=== PATIENT | female | born 2005 | race Hispanic/Latino ===

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

== ENCOUNTER 2024-06-27 16:26 | Inpatient (IN) | payer SELFPAY ==
[~2024-06-27] VITALS: Ht 157.5 cm; Wt 70.9 kg
[~2024-06-27 16:26] MED LIST: ONDA-243 PO; amoxicillin PO
--- NOTE | 2024-06-27 16:43 | NUR ---
SEPSIS ALERT AT THIS TIME. JUST PLACED IN HALLWAY A1
[2024-06-27 17:50] LABS: BASOPHILS # (AUTO) 0.03 K/uL (0.00-0.20); BASOPHILS % (AUTO) 0.2 % (0.0-5.0); HEMATOCRIT 35.6 % (36-48); IMMATURE GRANULOCYTE ABSOLUTE 0.06 K/uL (0-1); LYMPHOCYTES # (AUTO) 1.2 K/uL (1.0-4.8); MEAN CORPUSCULAR HEMOGLOBIN 29.5 pg (27.0-33.0); MEAN CORPUSCULAR HGB CONC 33.7 g/dL (32.0-36.0); MEAN CORPUSCULAR VOLUME 87.5 fL (80-100); MONOCYTES # (AUTO) 2.8 K/uL (0.1-1.0); MONOCYTES % (AUTO) 16.9 % (3.0-13.0); NEUTROPHILS # (AUTO) 12.7 K/uL (1.8-7.7); NEUTROPHILS % (AUTO) 75.5 % (40.0-77.0); PLATELET COUNT (AUTO) 186 K/uL (130-400); RED BLOOD CELL COUNT(AUTO) 4.07 MIL/uL (4.00-5.50); RED CELL DISTRIBUTION WIDTH 12.1 % (11.0-15.5); WHITE BLOOD COUNT (AUTO) 16.8 K/uL (4.8-10.8)
[2024-06-27 18:00] LABS: CREATININE 0.6 mg/dL (0.5-1.0)
--- NOTE | 2024-06-27 18:23 | HMCIMG ---
CT HEAD WITHOUT CONTRAST INDICATION: Headache TECHNIQUE: Noncontrast axial helical CT images from the vertex through the skull base using 5 mm slice thickness without contrast material. CT was performed with one or more of the following dose reduction techniques: Automated exposure control, adjustment of the mA and/or kV according to patient size, or use of iterative reconstruction technique. COMPARISON: None FINDINGS: The cerebral and cerebellar hemispheres are age-appropriate in appearance. No evidence for abnormal extra-axial fluid collections or masses. The ventricles and sulci are normal in size and configuration. No evidence for intracranial parenchymal, epidural, or subdural hemorrhage, mass effect or midline shift. The chase-white matter differentiation is well preserved. No secondary evidence to suggest acute ischemia. The brainstem and cerebellum appear normal. The visualized orbits appear unremarkable. The visible paranasal sinuses and mastoid air cells are clear. The calvarium appears normal. IMPRESSION: No acute intracranial process identified.
--- NOTE | 2024-06-27 18:24 | NUR ---
PT LEFT AND RETURNED FROM RADIOLOGY AND IS BEING SET UP FOR AN LP IN ED BED 6. PT ASSIGNED TO HALLWAY A1
[2024-06-27 18:33] LABS: RAPID GROUP A STREP negative (NEGATIVE)
[2024-06-27 18:47] LABS: COVID19 (SARS ANTIGEN RAPID) PRESUMPTIVE NEGATIVE (NEGATIVE)
[2024-06-27 18:48] LABS: INFLUENZA TYPE A Negative For Type A (NEGATIVE); INFLUENZA TYPE B Negative For Type B (NEGATIVE)
--- NOTE | 2024-06-27 19:11 | HMCIMG ---
PORTABLE CHEST RADIOGRAPH INDICATION: fever COMPARISON: None FINDINGS: Heart size is normal. The pulmonary vascularity and connor appear normal. No abnormal pulmonary parenchymal opacity or consolidation identified. No significant pleural effusion noted. No pneumothorax detected. IMPRESSION: No radiographic evidence for any acute cardiopulmonary process.
[2024-06-27] MEDS: 0.9%NACL 1000ML 1,000 ML IV ONE (19:12)
[2024-06-27] MEDS: morPHINE 2 MG SYG IVP ONE ×2 (19:13→22:44)
[2024-06-27] MEDS: PoTASSium BIcarbonate/CIT AC 25 MEQ TABLET.EFF PO ONE (19:51)
[2024-06-27 20:02] LABS: RED BLOOD CELL1,CSF 1499 CMM (0-0); WHITE BLOOD CELL1,CSF 0 CMM (0-5)
[2024-06-27 20:03] LABS: APPEARANCE,CSF HAZY (CLEAR); COLOR,CSF PINK (COLORLESS); CSF TUBE NUMBER 1
[2024-06-27 20:12] LABS: GLUCOSE, CSF 67 mg/dL (40-70); TOTAL PROTEIN, CSF 27 mg/dL (15-45)
[2024-06-27 20:23] LABS: APPEARANCE2,CSF CLEAR (CLEAR); CSF 2ND TUBE NUMBER 3
[2024-06-27 20:24] LABS: COLOR2,CSF COLORLESS (COLORLESS)
[2024-06-27 21:07] LABS: APPEARANCE,URINE CLOUDY (CLEAR); BILIRUBIN,URINE NEGATIVE (NEGATIVE); COLOR,URINE YELLOW (YELLOW); GLUCOSE, URINE (UA) NEGATIVE (NEGATIVE); KETONES,URINE 150 mg/dL (NEGATIVE); LEUKOCYTE ESTERASE ,URINE 500 Leu/uL (NEGATIVE); NITRATE,URINE NEGATIVE (NEGATIVE); OCCULT BLOOD,URINE LARGE (NEGATIVE); PROTEIN,URINE 70 mg/dL (NEGATIVE); UROBILINOGEN,URINE 0.2 mg/dL (0.2-1.0)
[2024-06-27 21:15] LABS: HCG,QUALITATIVE URINE NEGATIVE (NEGATIVE)
[2024-06-27 21:17] LABS: MUCUS,URINE RARE LPF (None Seen); RBC,URINE TNTC /HPF (0-1); SQUAMOUS EPITHELIAL CELL,UR RARE /HPF (0-2); WBC,URINE TNTC /HPF (0-1)
--- NOTE | 2024-06-27 22:01 | HMCIMG ---
ULTRASOUND OF THE PELVIS ULTRASOUND ABD VASCULAR LIMITED INDICATION: Pelvic pain COMPARISONS: None TECHNIQUE: Transabdominal real-time sonographic images were acquired earlier, and subsequently made available for review. FINDINGS: The uterus measures 9.3 x 3.2 x 4.8 cm. The uterus is normal in echotexture and contour. The endometrial thickness measures 5.0 mm. The right ovary measures 4.0 x 1.4 x 2.4 cm. The right ovary is normal in size, shape and echogenicity. No right adnexal masses demonstrated. Color Doppler flow is normal throughout the right ovary. Spectral Doppler analysis demonstrates a normal waveform pattern. The left ovary is obscured by overlying bowel gas. No free pelvic fluid demonstrated. IMPRESSION: No acute pelvic abnormality noted.
[2024-06-27] MEDS: ondanSETRON 4MG INJ IVP ONE (22:10)
--- NOTE | 2024-06-27 22:25 | ERN ---
General Chief Complaint: Fever Stated Complaint: FEVER AND NECK PAIN Time Seen by MD: 16:33 Time Seen by Midlevel: 16:33 Source: patient History of Present Illness Initial Comments 18-year-old female who presents to the emergency department by EMS due to fever. Patient reports she has a severe neck pain, stiffness, headache, nausea. Denies any abdominal pain, cough, congestion or further associated symptoms. Patient reports she was seen at [facility] approximately 10 days ago and told she was having a miscarriage. Denies significant past medical history. Allergies: Coded Allergies: No Known Allergies (Unverified Allergy, Unknown, 11/18/22) Home Meds Active Scripts Ondansetron (Ondansetron Odt) 4 Mg Tab.rapdis, 4 MG PO Q6HPRN PRN for nausea, #16 TAB 0 Refills Prov:ROSANNE FREEDMAN 11/19/22 [amoxicillin ] No Conflict Check, 500 MG PO BID for 10 Days, #20 0 Refills Prov:ROSANNE FREEDMAN 11/19/22 Past Medical History Past Medical History: No Pertinent History Medical History Other: MISCARRAIGE X 2 WKS AGO Past Surgical History: None Female( History) : 1 Aborts: 1 ROS Dictation Constitutional: Positive for fever Negative for chills, and weight loss Eyes: Negative for injury, pain,redness, and discharge ENT: Negative for injury,pain or swelling Cardiovascular: Negative for chest pain, palpitations, and edema Respiratory: Negative for shortness of breath, cough, and wheezing, Abdomen/GI: Positive for nausea Negative for abdominal pain, nausea, vomiting, diarrhea, and constipation Back: Negative for injury and pain : Negative for painful urination, bleeding or discharge MS/Extremity: Positive for neck stiffness/pain Negative for injury and deformity Skin: Negative for rash, and discoloration Neuro: Positive for headache Negative for weakness, numbness, tingling, and seizure Psych: Negative for suicide ideation, homicidal ideation, and hallucinations Physical Exam Physical Exam Dictation General: awake, alert, no acute distress Head/Face: Normocephalic, atraumatic Eyes: PERRL, EOMI, normal conjunctiva ENT: oral cavity clear, TMs clear, oral mucosa moist Neck: Range of motion restricted by pain, tenderness Cardiovascular: RRR, normal S1/S2 Respiratory: CTAB, no respiratory distress, no rales or wheezes Abdomen: Soft, non-tender, non-distended, normal bowel sounds, no guarding or rebound. Skin: Warm, dry, normal turgor, no rash MS/Extremity: Pulses equal, no cyanosis, neurovascular intact, FROM Neuro: COAx4, GCS 15, strength 5/5, CN 2-12 intact, normal cerebellar exam, normal gait Psych: Normal behavior, mood, and affect normal Results Laboratory and Microbiology Lab and Micro Result Labs Reviewed?: Yes EKG/XRAY/US/CT/MRI X-RAY Comment REASON: fever ORDERING PHYSICIAN: TENISHA VELOZ DO PROCEDURE: CXR1VW - CHEST 1VW PORTABLE CHEST RADIOGRAPH INDICATION: fever COMPARISON: None FINDINGS: Heart size is normal. The pulmonary vascularity and connor appear normal. No abnormal pulmonary parenchymal opacity or consolidation identified. No significant pleural effusion noted. No pneumothorax detected. IMPRESSION: No radiographic evidence for any acute cardiopulmonary process. DICTATED BY: Danny MARVIN Comment REASON: R/O retained conception products ORDERING PHYSICIAN: FLORINA BERNAL PROCEDURE: PELVCOMP - US PELVIC NON-OB COMP ULTRASOUND OF THE PELVIS ULTRASOUND ABD VASCULAR LIMITED INDICATION: Pelvic pain COMPARISONS: None TECHNIQUE: Transabdominal real-time sonographic images were acquired earlier, and subsequently made available for review. FINDINGS: The uterus measures 9.3 x 3.2 x 4.8 cm. The uterus is normal in echotexture and contour. The endometrial thickness measures 5.0 mm. The right ovary measures 4.0 x 1.4 x 2.4 cm. The right ovary is normal in size, shape and echogenicity. No right adnexal masses demonstrated. Color Doppler flow is normal throughout the right ovary. Spectral Doppler analysis demonstrates a normal waveform pattern. The left ovary is obscured by overlying bowel gas. No free pelvic fluid demonstrated. IMPRESSION: No acute pelvic abnormality noted. DICTATED BY: JOS MARVIN MD DATE: 06/27/242157 CT Scan Comment REASON: headache ORDERING PHYSICIAN: TENISHA VELOZ DO PROCEDURE: HEAD WO - CT HEAD/BRAIN W/O CONTRAST CT HEAD WITHOUT CONTRAST INDICATION: Headache TECHNIQUE: Noncontrast axial helical CT images from the vertex through the skull base using 5 mm slice thickness without contrast material. CT was performed with one or more of the following dose reduction techniques: Automated exposure control, adjustment of the mA and/or kV according to patient size, or use of iterative reconstruction technique. COMPARISON: None FINDINGS: The cerebral and cerebellar hemispheres are age-appropriate in appearance. No evidence for abnormal extra-axial fluid collections or masses. The ventricles and sulci are normal in size and configuration. No evidence for intracranial parenchymal, epidural, or subdural hemorrhage, mass effect or midline shift. The chase-white matter differentiation is well preserved. No secondary evidence to suggest acute ischemia. The brainstem and cerebellum appear normal. The visualized orbits appear unremarkable. The visible paranasal sinuses and mastoid air cells are clear. The calvarium appears normal. IMPRESSION: No acute intracranial process identified. DICTATED BY: JOS MARVIN MD DATE: 06/27/241820 MDM MDM: Differential diagnosis: Meningitis, viral illness, retained products of conception Rationale: 18-year-old female who presents to the emergency department by EMS due to fever. Patient reports she has a severe neck pain, stiffness, headache, nausea. Denies any abdominal pain, cough, congestion or further associated symptoms. Patient reports she was seen at [facility] approximately 10 days ago and told she was having a miscarriage. Denies significant past medical history. Per physical examination patient is in no acute distress, nonlabored breathing, limited range of motion of the neck with mild tenderness, neurologically intact. Labs obtained indicated leukocytosis with WBCs of 16.8, dehydration with a low- sodium and chloride, hypokalemia potassium of 3.0. UA indicates urinary tract infection, urine drug screen positive for opiates and marijuana. Serology influenza, SARs, strep negative. Lumbar puncture performed RBCs 1499, pink color, and haziness appearance, negative for WBCs, bacteria. Head CT negative for acute abnormalities. Chest x-ray no acute abnormalities noted. Pelvic ul trasound shows no retained products of conception. Upon discussing findings and diagnosis with patient she verbalized the pain and neck pain have been worsening. Patient was administered IV fluids, morphine, K-Lyte, Zofran, Rocephin in the ED. case was discussed with hospitalist who accepted admission. Previous outside records reviewed: Old ER visits. Risk of complication and/or morbidity or mortality of patient management: None Medications-Per medication reconciliation Need for hospitalization: Patient does meet criteria for hospitalization. Need for emergency major/minor surgery: No There are no social concerns with this patient. Prescription drug management Prescriptions will include symptomatic care Patient's prior external medical records from other ER visits were reviewed by me as indicated. Prior testing and results from previous visits were reviewed. Prior tests were taken into account with medical decision making and resource utilization, independent historian/historians were used to obtain complete medical history. I independently interpreted the test that were performed, results were reviewed by me and considered findings on radiology if ordered. Medical management and examination interpretation discussions were had by me with other qualified healthcare professionals as indicated for the patient's care. ED Course Critical Care Note Critical Time: 30 minutes Comments Critical Care Procedure Note Authorized and Performed by: me Total critical care time: Approximately 36 minutes Due to a high probability of clinically significant, life threatening deterioration, the patient required my highest level of preparedness to intervene emergently and I personally spent this critical care time directly and personally managing the patient. This critical care time included obtaining a history; examining the patient; pulse oximetry; ordering and review of studies; arranging urgent treatment with development of a management plan; evaluation of patient's response to treatment; frequent reassessment; and, discussions with other providers. This critical care time was performed to assess and manage the high probability of imminent, life-threatening deterioration that could result in multi-organ failure. It was exclusive of separately billable procedures and treating other patients and teaching time. Please see MDM section and the rest of the note for further information on patient assessment and treatment. DX & DISP Disposition: Inpatient Decision to Admit Date: Jun 27, 2024 Departure Impression: Primary Impression: Urinary tract infection Additional Impressions: Headache, Neck stiffness, Leukocytosis Condition: Stable Referrals: SELF,REFERRAL (PCP) I performed the substantive portion of the visit. I have reviewed and personally made and approve the management plan that is documented in the notes by myself or the PIEDAD. I acknowledge full responsibility for the patient's management plan. FLORINA BERNAL Jun 27, 2024 22:25
[2024-06-27] MEDS: cefTRIAXone 1G VIAL IVPB ONE (22:36)
--- NOTE | 2024-06-27 23:02 | HP ---
[facility] HISTORY AND PHYSICAL Date of Service: Jun 27, 2024 Time of Service: 23:01 PCP: Self Referral HISTORY OF PRESENT ILLNESS: This is a 18-year-old female with significant medical history of asthma who was brought by EMS to the ED for complaints of fever ( T101 at home ) and neck pain which started yesterday associated with nausea and multi episodes of vomiting. Patient states she developed eyelid pain because of pressure when she was vomiting.Patient also reports having generalized body weakness and unsteady gait today. Patient also reports she had miscarriage 1.5 weeks ago and she went to [facility]As per ER midlevel's report a lumbar puncture procedure was done in the ER. Patient denies recent travel outside the country, patient denies sick contact. Patient has two cats and one dog which are indoor. Seen and examined patient in the ER awake,alert and coherent,appears comfortable.Patient denies headache,visual disturbance ,chest pain,palpitation ,cough and shortness of breath. Vital signs temperature 98.8, heart rate 92, blood pressure 122/78 saturation 98% on room air. Labs: WBC 16, hemoglobin 12, hematocrit 35, platelet count 186. Sodium 130, potassium 3.0 chloride 95. Urinalysis consistent with urinary tract infection. Influenza type a and B negative SARs COVID negative group a strep negative. CSF appearance hazy, color pink WBC 0 RBC 1499 the rest of the result are normal. Chest x-ray is normal. CT head without contrast result is unremarkable. Pelvic ultrasound result revealed no acute pelvic abnormality noted. While in the ER patient received 1 L NS bolus, morphine 2 mg IV, potassium replacement 50 mEq p.o., Zofran 4 mg IV we will admit patient for further medical management. REVIEW OF SYSTEMS CONSTITUTIONAL: Complained of fever Denies chills, or night sweats. No unintentional weight loss reported. NEUROLOGICAL: Complain of generalized body weakness and neck pain Denies headache, amaurosis fugax,sensory deficit, vertigo/spinning sensation, gait abnormalities, or tremors. ENT: No hearing loss, otalgia, otorrhea, rhinitis, rhinorrhea, hoarseness, or sore throat. CARDIOVASCULAR: Denies any exertional angina, dyspnea on exertion, orthopnea, paroxysmal nocturnal dyspnea, palpitations, life-threatening arrhythmias, claudication. PULMONARY: Denies any shortness of breath, cough, phlegm/sputum, hemoptysis, pleuritic chest pain. SLEEP: Denies morning headaches, daytime somnolence or napping. Denies difficulty falling asleep, staying asleep, waking from sleep. Denies knowledge of snoring. GASTROINTESTINAL: Complain of nausea and vomiting multiple times Denies any type of dysphagia to either liquids or solids. Denies pyrosis, early satiety, abdominal pain, diarrhea, constipation, or changes in stool consistency or caliber. Denies coffee-ground emesis, hematemesis, hematochezia, or melanotic stools. GENITOURINARY: Denies frequency, urgency, nocturia, hematuria or incontinence (Storage/Irritative symptoms.) Low urinary stream, straining to void, urinary intermittency or hesitancy, splitting of the voiding stream, terminal dribbling. ENDOCRINOLOGIC: Denies polyuria, polydipsia, polyphagia or heat/cold intolerances. HEMATOLOGIC: Denies thrombophilia/previous clots, or coagulopathy/bleeding disorders. ONCOLOGIC: Denies personal history of malignancy. DERMATOLOGIC: Denies rashes or pruritus. PSYCHIATRIC: Denies any suicidal or homicidal ideation. Denies hallucinations. PAST MEDICAL HISTORY: [ Asthma] PAST SURGICAL HISTORY: [Patient denies ] PAST SOCIAL HISTORY: [ Patient lives with boyfriend. Patient admits to smoking marijuana. Patient denies cigarette, cocaine and alcohol use ] FAMILY HISTORY: [ Noncontributory ] Coded Allergies: No Known Allergies (Unverified Allergy, Unknown, 11/18/22) PHYSICAL EXAM GENERAL APPEARANCE: The patient is awake, alert, and oriented, in no acute cardiopulmonary distress. NEUROLOGICAL: Cranial nerves II-XII grossly intact. Motor is 5/5 in bilateral upper and lower extremities proximal to distal. No sensory deficits. HEENT: Face is symmetric. Pupils are equal and reactive. Extraocular movements are intact. NECK: Supple. No JVD. No thyromegaly. No submental, submandibular, pre- /postauricular, occipital or supraclavicular lymphadenopathy. CHEST: Normal chest expansion. No Telemetry. LUNGS: Absence of any rales, rhonchi or any wheezing. CARDIOVASCULAR: Regular. S1 and S2 normal. No appreciable rubs, murmurs or gallops. ABDOMEN: Soft, nontender, and nondistended. There is no rebound, voluntary guarding, or rigidity. : Deferred. No Jones. EXTREMITIES: Non-edematous and not cyanotic. No clubbing. Good capillary refill. SKIN: No skin breakdown. Vital Sign (Last 24 Hours) 06/27/24 20:12 Temp 98.8 Pulse 92 Resp 22 B/P (MAP) 122/78 Pulse Ox 98 O2 Delivery Room Air* O2 Flow Rate 0 FiO2 21 LABS: Laboratory: Test 06/27/24 20:55 06/27/24 18:35 06/27/24 17:55 06/27/24 17:43 Range/Units Urine Color YELLOW YELLOW Urine Appearance CLOUDY H CLEAR Urine pH 6.0 5.0-8.0 Urine Specific [place] 1.019 1.001-1.031 Urine Protein 70 H NEGATIVE mg/dL Urine Glucose (UA) NEGATIVE NEGATIVE mg/dL Urine Ketones 150 H NEGATIVE mg/dL Urine Occult Blood LARGE H NEGATIVE Urine Nitrate NEGATIVE NEGATIVE Urine Bilirubin NEGATIVE NEGATIVE mg/dL Urine Urobilinogen 0.2 0.2-1.0 mg/dL Urine Leukocyte Esterase 500 H NEGATIVE Jami/uL Urine RBC TNTC H 0-1 /HPF Urine WBC TNTC H 0-1 /HPF Urine Squamous Epithelial Cells RARE 0-2 /HPF Urine Bacteria None None Seen /HPF Urine HCG, Qualitative NEGATIVE NEGATIVE CSF Tube Number 1 CSF Volume 5.0 mL CSF Appearance HAZY CLEAR CSF Color PINK H COLORLESS CSF WBC 0 0-5 CMM CSF RBC 1499 H 0-0 CMM CSF Tube Number (Tube b) 3 CSF Appearance (Tube b) CLEAR CLEAR CSF Color (Tube b) COLORLESS COLORLESS CSF WBC (Tube b) 0.0 0-5 CMM CSF RBC (Tube b) 0.0 0-0 CMM CSF Neutrophils % (tube B) % CSF Lymphocytes % (tube b) % CSF Other Cells % (Tube b) CSF Glucose 67 40-70 mg/dL CSF Total Protein 27 15-45 mg/dL Influenza Type A Antigen Negative For Type A NEGATIVE Influenza Type B Antigen Negative For Type B NEGATIVE SARS-CoV-2 Antigen (Rapid) PRESUMPTIVE NEGATIVE NEGATIVE Group A Streptococcus Rapid negative NEGATIVE White Blood Count 16.8 H 4.8-10.8 K/uL Red Blood Count 4.07 4.00-5.50 MIL/uL Hemoglobin 12.0 12.0-16.0 g/dL Hematocrit 35.6 L 36-48 % Mean Corpuscular Volume 87.5 80-100 fL Mean Corpuscular Hemoglobin 29.5 27.0-33.0 pg Mean Corpuscular Hemoglobin Concent 33.7 32.0-36.0 g/dL Red Cell Distribution Width 12.1 11.0-15.5 % Platelet Count 186 130-400 K/uL Mean Platelet Volume 12.1 H 7.5-10.5 fL Immature Granulocyte % (Auto) 0.4 0-1 % Neutrophils (%) (Auto) 75.5 40.0-77.0 % Lymphocytes (%) (Auto) 7.0 L 21.0-51.0 % Monocytes (%) (Auto) 16.9 H 3.0-13.0 % Eosinophils (%) (Auto) 0.0 0.0-8.0 % Basophils (%) (Auto) 0.2 0.0-5.0 % Neutrophils # (Auto) 12.7 H 1.8-7.7 K/uL Lymphocytes # (Auto) 1.2 1.0-4.8 K/uL Monocytes # (Auto) 2.8 H 0.1-1.0 K/uL Eosinophils # (Auto) 0.00 0.00-0.70 K/uL Basophils # (Auto) 0.03 0.00-0.20 K/uL Absolute Immature Granulocyte (auto 0.06 0-1 K/uL Nucleated Red Blood Cells 0.0 0.0-0.19 % White Cell Morphology Comment See comments Sodium Level 130 L 136-145 mmol/L Potassium Level 3.0 *L 3.5-5.1 mmol/L Chloride Level 95 L 101-111 mmol/L Carbon Dioxide Level 23 21-32 mmol/L Blood Urea Nitrogen 9 7-18 mg/dL Creatinine 0.6 0.5-1.0 mg/dL Glomerular Filtration Rate Calc 133 >90 mL/min Random Glucose 97 70-105 mg/dL Lactic Acid Level 0.9 0.8-2.5 mmol/L Total Calcium 8.5 8.5-10.1 mg/dL DIAGNOSTICS / RADIOLOGY: [ ] ASSESSMENT: 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 Hypokalemia POA Dehydration POA Substance abuse POA Urinary tract infection POA PLAN: We will admit patient in medical telemetry We will start on clear liquid advanced as tolerated We will start NS @ 100 ml / hr and re evaluate We will start patient on Rocephin IV bid for empiric coverage We will start on Famotidine 20 mg po bid for GI prophylaxis We will replace electrolytes as needed per protocol We will add prn medication for fever,pain,cough and nausea We will seek Infectious Disease consultation We will request case management service We will request labs in am Counseled on marijuana use cessation Further orders to follow depending on above results Case discussed with attending physician and came up with above treatment and plan of care. ADVANCED CARE PLANNING 1. Which of the following were discussed? Hospice Care - No Therapeutic options - Yes Advance Directives - No Other discussions - 2. Discussed with who? Patient 3. Voluntary nature of this service was explained to the patient? Yes 4. Amount of time spent - ___20____ 5. Reviewed by Physician? (if this service was performed by NPP) Yes Patient seen and examined by me. Agree with note by PVC LOADER SEE ADDITIONAL ORDERS PER CHART DISCUSSED WITH NURSING STAFF YVONNE DONOVAN Jun 27, 2024 23:02
[2024-06-28] MEDS ORDERED: ondanSETRON 4MG INJ IV PRN (01:30)
[2024-06-28] MEDS ORDERED: cefTRIAXone 1G VIAL 1 GM in 0.9%NACL 50ML 50 ML IV SCH (01:30)
[2024-06-28 02:11] LABS: AMPHET/METH SCREEN,URINE NEGATIVE (NEGATIVE); BARBITURATE SCREEN, URINE NEGATIVE (NEGATIVE); BENZODIAZEPINES SCREEN,URINE NEGATIVE (NEGATIVE); CANNABINOID SCREEN,URINE POSITIVE (NEGATIVE); COCAINE SCREEN,URINE NEGATIVE (NEGATIVE); OPIATE SCREEN,URINE POSITIVE (NEGATIVE); PHENCYCLIDINE SCREEN,URINE NEGATIVE (NEGATIVE)
[2024-06-28] MEDS: ketOROlac 15MG/ML VIAL (15MG/ML) IV PRN (03:04)
[2024-06-28] MEDS: 0.9%NACL 1000ML 1,000 ML IV SCH (03:04)
[2024-06-28 04:00] VITALS: BP 119/78; PULSE 107; RESP 19; TEMP 99.8
[2024-06-28 05:06] LABS: BASOPHILS # (AUTO) 0.04 K/uL (0.00-0.20); BASOPHILS % (AUTO) 0.3 % (0.0-5.0); IMMATURE GRANULOCYTE ABSOLUTE 0.07 K/uL (0-1); LYMPHOCYTES # (AUTO) 1.6 K/uL (1.0-4.8); MEAN CORPUSCULAR HEMOGLOBIN 29.5 pg (27.0-33.0); MEAN CORPUSCULAR HGB CONC 33.6 g/dL (32.0-36.0); MEAN CORPUSCULAR VOLUME 87.8 fL (80-100); MONOCYTES # (AUTO) 2.4 K/uL (0.1-1.0); MONOCYTES % (AUTO) 16.7 % (3.0-13.0); NEUTROPHILS # (AUTO) 10.4 K/uL (1.8-7.7); NEUTROPHILS % (AUTO) 71.5 % (40.0-77.0); PLATELET COUNT (AUTO) 191 K/uL (130-400); WHITE BLOOD COUNT (AUTO) 14.5 K/uL (4.8-10.8)
[2024-06-28 05:27] LABS: ALBUMIN 2.8 g/dL (3.5-5.0); BILIRUBIN,TOTAL 0.4 mg/dL (0.2-1.0); CREATININE 0.7 mg/dL (0.5-1.0); POTASSIUM 3.3 mmol/L (3.5-5.1); TOTAL PROTEIN, SERUM 6.7 g/dL (6.0-8.3)
[2024-06-28 06:50] LABS: ERYTHROCYTE SEDIMENTATION RATE 53 MM/HR (0-20)
--- NOTE | 2024-06-28 07:05 | NUR ---
Pt is received with report from the night shift manager nurse. She is resting in bed in no distress. PT has no concerns or complaints. The bed is in a low position with the call clement in reach.
[2024-06-28 08:04] VITALS: BP 127/71; PULSE 118; RESP 20; TEMP 101.4
--- NOTE | 2024-06-28 09:00 | NUR ---
Low potasium level reported Dr. Walton' DEALER DEVELOPMENT MANAGER is at the bedside. Updated on current status and current potassium level.
[2024-06-28] MEDS: FAMOTIDINE 20MG VIAL IV SCH (09:52)
--- NOTE | 2024-06-28 10:21 | PN ---
[facility] PROGRESS NOTE Date of Service: Jun 28, 2024 Time of Service: 10:11 SUBJECTIVE: [ ] This is a 18-year-old female with significant medical history of asthma who was brought by EMS to the ED for complaints of fever ( T101 at home ) and neck pain which started yesterday associated with nausea and multi episodes of vomiting. Patient states she developed eyelid pain because of pressure when she was vomiting.Patient also reports having generalized body weakness and unsteady gait today. Patient also reports she had miscarriage 1.5 weeks ago and she went to [facility] [place].As per ER midlevel's report a lumbar puncture procedure was done in the ER. Patient denies recent travel outside the country, patient denies sick contact. Patient has two cats and one dog which are indoor. on admission: Vital signs temperature 98.8, heart rate 92, blood pressure 122/78 saturation 98% on room air. Labs: WBC 16, hemoglobin 12, hematocrit 35, platelet count 186. Sodium 130, potassium 3.0 chloride 95. Urinalysis consistent with urinary tract infection. Influenza type a and B negative SARs COVID negative group a strep negative. CSF appearance hazy, color pink WBC 0 RBC 1499 the rest of the result are normal. Chest x-ray is normal. CT head without contrast result is unremarkable. Pelvic ultrasound result revealed no acute pelvic abnormality noted. While in the ER patient received 1 L NS bolus, morphine 2 mg IV, potassium replacement 50 mEq p.o., Zofran 4 mg IV we will admit patient for further medical management. 06/28/2024 patient was seen patient appears acutely ill. She is fully awake alert oriented. Denies sensitivity to light. Reports no headache Denied chest pain shortness a breath REVIEW OF SYSTEMS CONSTITUTIONAL: Complained of fever Denies chills, or night sweats. No unintentional weight loss reported. NEUROLOGICAL: Complain of generalized body weakness and neck pain Denies headache, amaurosis fugax,sensory deficit, vertigo/spinning sensation, gait abnormalities, or tremors. ENT: No hearing loss, otalgia, otorrhea, rhinitis, rhinorrhea, hoarseness, or sore throat. CARDIOVASCULAR: Denies any exertional angina, dyspnea on exertion, orthopnea, paroxysmal nocturnal dyspnea, palpitations, life-threatening arrhythmias, claudication. PULMONARY: Denies any shortness of breath, cough, phlegm/sputum, hemoptysis, pleuritic chest pain. SLEEP: Denies morning headaches, daytime somnolence or napping. Denies difficulty falling asleep, staying asleep, waking from sleep. Denies knowledge of snoring. GASTROINTESTINAL: Complain of nausea and vomiting multiple times Denies any type of dysphagia to either liquids or solids. Denies pyrosis, early satiety, abdominal pain, diarrhea, constipation, or changes in stool consistency or caliber. Denies coffee-ground emesis, hematemesis, hematochezia, or melanotic stools. GENITOURINARY: Denies frequency, urgency, nocturia, hematuria or incontinence (Storage/Irritative symptoms.) Low urinary stream, straining to void, urinary intermittency or hesitancy, splitting of the voiding stream, terminal dribbling. ENDOCRINOLOGIC: Denies polyuria, polydipsia, polyphagia or heat/cold intolerances. HEMATOLOGIC: Denies thrombophilia/previous clots, or coagulopathy/bleeding disorders. ONCOLOGIC: Denies personal history of malignancy. DERMATOLOGIC: Denies rashes or pruritus. PSYCHIATRIC: Denies any suicidal or homicidal ideation. Denies hallucinations. PHYSICAL EXAM GENERAL APPEARANCE: The patient is awake, alert, and oriented, in no acute cardiopulmonary distress. NEUROLOGICAL: Cranial nerves II-XII grossly intact. Motor is 5/5 in bilateral upper and lower extremities proximal to distal. No sensory deficits. HEENT: Face is symmetric. Pupils are equal and reactive. Extraocular movements are intact. NECK: Supple. No JVD. No thyromegaly. No submental, submandibular, pre- /postauricular, occipital or supraclavicular lymphadenopathy. CHEST: Normal chest expansion. No Telemetry. LUNGS: Absence of any rales, rhonchi or any wheezing. CARDIOVASCULAR: Regular. S1 and S2 normal. No appreciable rubs, murmurs or gallops. ABDOMEN: Soft, nontender, and nondistended. There is no rebound, voluntary guarding, or rigidity. : Deferred. No Jones. EXTREMITIES: Non-edematous and not cyanotic. No clubbing. Good capillary refill. SKIN: No skin breakdown. Vital Signs (last 8hr) Date Time Temp Pulse Resp B/P (MAP) Pulse Ox O2 Delivery O2 Flow Rate FiO2 06/28/24 08:04 101.5 118 20 127/71 99 Room Air 3/26/25 04:00 99.9 107 19 119/78 99 Room Air 21 LABS: Laboratory: Test 06/28/24 04:54 06/27/24 20:58 06/27/24 20:55 06/27/24 18:35 Range/Units White Blood Count 14.5 H 4.8-10.8 K/uL Red Blood Count 4.10 4.00-5.50 MIL/uL Hemoglobin 12.1 12.0-16.0 g/dL Hematocrit 36.0 36-48 % Mean Corpuscular Volume 87.8 80-100 fL Mean Corpuscular Hemoglobin 29.5 27.0-33.0 pg Mean Corpuscular Hemoglobin Concent 33.6 32.0-36.0 g/dL Red Cell Distribution Width 12.0 11.0-15.5 % Platelet Count 191 130-400 K/uL Mean Platelet Volume 12.0 H 7.5-10.5 fL Immature Granulocyte % (Auto) 0.5 0-1 % Neutrophils (%) (Auto) 71.5 40.0-77.0 % Lymphocytes (%) (Auto) 11.0 L 21.0-51.0 % Monocytes (%) (Auto) 16.7 H 3.0-13.0 % Eosinophils (%) (Auto) 0.0 0.0-8.0 % Basophils (%) (Auto) 0.3 0.0-5.0 % Neutrophils # (Auto) 10.4 H 1.8-7.7 K/uL Lymphocytes # (Auto) 1.6 1.0-4.8 K/uL Monocytes # (Auto) 2.4 H 0.1-1.0 K/uL Eosinophils # (Auto) 0.00 0.00-0.70 K/uL Basophils # (Auto) 0.04 0.00-0.20 K/uL Absolute Immature Granulocyte (auto 0.07 0-1 K/uL Nucleated Red Blood Cells 0.0 0.0-0.19 % Erythrocyte Sedimentation Rate 53 H 0-20 MM/HR Sodium Level 130 L 136-145 mmol/L Potassium Level 3.3 L 3.5-5.1 mmol/L Chloride Level 96 L 101-111 mmol/L Carbon Dioxide Level 22 21-32 mmol/L Blood Urea Nitrogen 8 7-18 mg/dL Creatinine 0.7 0.5-1.0 mg/dL Glomerular Filtration Rate Calc 128 >90 mL/min Random Glucose 91 70-105 mg/dL Lactic Acid Level 1.0 0.8-2.5 mmol/L Total Calcium 8.8 8.5-10.1 mg/dL Total Bilirubin 0.4 0.2-1.0 mg/dL Aspartate Amino Transf (AST/SGOT) 22 10-37 U/L Alanine Aminotransferase (ALT/SGPT) 20 12-78 U/L Alkaline Phosphatase 77 50-136 U/L Total Creatine Kinase 119 21-232 U/L Total Protein 6.7 6.0-8.3 g/dL Albumin 2.8 L 3.5-5.0 g/dL Procalcitonin 0.35 0.05-0.5 ng/mL Urine Opiates Screen POSITIVE H NEGATIVE Urine Barbiturates Screen NEGATIVE NEGATIVE Urine Phencyclidine Screen NEGATIVE NEGATIVE Urine Amphetamines Screen NEGATIVE NEGATIVE Urine Benzodiazepines Screen NEGATIVE NEGATIVE Urine Cocaine Screen NEGATIVE NEGATIVE Urine Marijuana (THC) Screen POSITIVE H NEGATIVE Urine Color YELLOW YELLOW Urine Appearance CLOUDY H CLEAR Urine pH 6.0 5.0-8.0 Urine Specific [place] 1.019 1.001-1.031 Urine Protein 70 H NEGATIVE mg/dL Urine Glucose (UA) NEGATIVE NEGATIVE mg/dL Urine Ketones 150 H NEGATIVE mg/dL Urine Occult Blood LARGE H NEGATIVE Urine Nitrate NEGATIVE NEGATIVE Urine Bilirubin NEGATIVE NEGATIVE mg/dL Urine Urobilinogen 0.2 0.2-1.0 mg/dL Urine Leukocyte Esterase 500 H NEGATIVE Jami/uL Urine RBC TNTC H 0-1 /HPF Urine WBC TNTC H 0-1 /HPF Urine Squamous Epithelial Cells RARE 0-2 /HPF Urine Bacteria None None Seen /HPF Urine HCG, Qualitative NEGATIVE NEGATIVE CSF Tube Number 1 CSF Volume 5.0 mL CSF Appearance HAZY CLEAR CSF Color PINK H COLORLESS CSF WBC 0 0-5 CMM CSF RBC 1499 H 0-0 CMM CSF Tube Number (Tube b) 3 CSF Appearance (Tube b) CLEAR CLEAR CSF Color (Tube b) COLORLESS COLORLESS CSF WBC (Tube b) 0.0 0-5 CMM CSF RBC (Tube b) 0.0 0-0 CMM CSF Neutrophils % (tube B) % CSF Lymphocytes % (tube b) % CSF Other Cells % (Tube b) CSF Glucose 67 40-70 mg/dL CSF Total Protein 27 15-45 mg/dL Test 06/27/24 17:55 06/27/24 17:43 Range/Units Influenza Type A Antigen Negative For Type A NEGATIVE Influenza Type B Antigen Negative For Type B NEGATIVE SARS-CoV-2 Antigen (Rapid) PRESUMPTIVE NEGATIVE NEGATIVE Group A Streptococcus Rapid negative NEGATIVE White Cell Morphology Comment See comments Current Medications Medications (Trade) Dose Ordered Sig/Shelly Route PRN Reason Start Time Stop Time Status Last Admin Dose Admin Ceftriaxone Sodium 1 gm/ Sodium Chloride 50 ml @ 100 mls/hr Q24H IV 06/28/24 01:30 06/28/24 01:47 DC Ceftriaxone Sodium (ROCEphine 1G INJ) 1 gm Q24H IVPB 06/28/24 22:00 07/08/24 21:59 Famotidine (Pepcid 20mg Vial) 20 mg BID IV 06/28/24 09:00 07/28/24 08:59 06/28/24 09:52 20 MG Ketorolac Tromethamine (toRADol) 15 mg Q6H PRN IV MODERATE PAIN (4-6) 06/28/24 03:00 07/03/24 02:59 06/28/24 03:04 15 MG Ondansetron HCl (zoFRAN 4MG INJ) 4 mg Q6H PRN IV NAUSEA/VOMITING 06/28/24 01:30 07/28/24 01:29 Sodium Chloride 1,000 ml @ 100 mls/hr Q10H IV 06/28/24 01:30 07/28/24 01:29 06/28/24 03:04 100 MLS/HR DIAGNOSTICS / RADIOLOGY: [ ] ASSESSMENT: Sepsis temperature 101.5, tachycardia 118, leukocytosis POA 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 Continue Tylenol 650 mg po every 4 hrs for fever Pain management: Toradol IV every 4 hours PRN: MEDICATIONS Tylenol 650 mg po every 4 hrs for fever Supportive measures: DVT ppx, GI ppx all questions answered Supervising MD Dr. Mishra This document was generated in part using voice recognition software, occasional wrong word or sound alike substitutions may have occurred due to the inherent limitations of voice recognition software. Read the chart carefully and recogni ze using context, where the substitutions have occurred. Although every effort was made to edit the content, bulk tank driver and typing errors may occur ATTESTATION BY PHYSICIAN I have seen and examined the patient. I reviewed the documentation, medical decision making, and treatment plan as noted by the mid-level provider above. I agree with the findings and plan of care. HERLINDA MISHRA MD, ELIZABETH NP Jun 28, 2024 10:21
[2024-06-28] MEDS: PoTASSium chloRIDE 20MEQ ER 20 MEQ ERTAB PO PRN (10:23)
[2024-06-28] MEDS ORDERED: MAGNESIUM 2GM PREMIX 50ML 50 ML IV PRN (10:30)
[2024-06-28] MEDS ORDERED: PoTASSium chloRIDE 20MEQ/100ML 100 ML IV PRN (10:30)
[2024-06-28] MEDS ORDERED: PoTASSium chl 10% ELIXIR 20MEQ 20 MEQ/15 ML UDCUP PO PRN (10:30)
[2024-06-28 12:08] VITALS: BP 129/81; PULSE 114; RESP 19; TEMP 100
--- NOTE | 2024-06-28 13:23 | CONS ---
INFECTIOUS DISEASE CONSULTATION NOTE Date of Service: Jun 28, 2024 Reason for Consultation: Possible meningitis/Encephalitis Requesting Physician: Rina Morton. HISTORY OF PRESENT ILLNESS: This is a 18-year-old female patient with past medical history of asthma and a recent miscarriage two weeks ago who presented to the hospital with chief complaint of fever for 4 days and neck pain since Wednesday. Patient also reported she was having nausea and vomiting. On admission patient had a WBC of 16.8 but no fever. Patient denied any recent travel. A lumbar puncture was done in ER and the fluid is negative for WBC. We will follow up on the CSF culture results. A urinalysis was positive and patient was started on ceftriaxone. During examination today patient denied dysuria or frequent urination. The WBC still elevated at 14.5 and patient had a fever of 101.5 this morning. The nausea and vomiting has resolved. No skin rash. Not having sensitivity to light. The preliminary urine culture results is growing Gram-negative rods. We will discontinue ceftriaxone and start patient on Zosyn IV. REVIEW OF SYSTEMS CONSTITUTIONAL: Reported fever. HEAD/FACE: Reported headache. EENT: Denies eye pain, blurred vision, double vision, or light sensitivity. RESPIRATORY: Denies shortness of breath, cough, wheezing. CARDIOVASCULAR: Denies chest pain, palpitation, syncope. GASTROINTESTINAL/ABDOMINAL: Reported nausea and vomiting GENITOURINARY: Denies dysuria or hematuria. MUSCULOSKELETAL: Denies joint pain, tenderness, or trauma. INTEGUMENTARY: Denies rash or itchiness NEUROLOGICAL/PSYCH: Denies anxiety, depression, heat or cold intolerance. PAST MEDICAL HISTORY: Asthma. Miscarriage two weeks ago. PAST SURGICAL HISTORY: Denied any surgical procedures. PAST SOCIAL HISTORY: Admitted to using Using marijuana and alcohol occasionally. Denies the use of any other illicit drug. FAMILY HISTORY: Mother had cervical cancer. Coded Allergies: No Known Allergies (Unverified Allergy, Unknown, 11/18/22) PHYSICAL EXAM EYES: Anicteric. Pupils equal and reactive. HENT: No oral thrush seen, moist Oral mucosa. NECK: Supple, no JVD or thyromegaly. LUNGS: Good air entry. No rales, no rhonchi. CARDIOVASCULAR: S1, S2 regular. No murmur heard. ABDOMEN: Soft, non tender, bowel sounds present, no organomegaly. CENTRAL NERVOUS SYSTEM: Awake, alert, oriented x 3. SKIN: No rashes, no swelling. LYMPHATICS: No peripheral lymphadenopathy MUSCULOSKELETAL: No joint swelling, erythema or tenderness. EXTREMITIES: No cyanosis or clubbing. BACK: No deformity, no pressure ulcer. GENITOURINARY: No dysuria or hematuria. Vital Sign (Last 24 Hours) 06/27/24 06/28/24 06/28/24 20:12 04:00 12:08 Temp 100.0 Pulse 114 Resp 19 B/P (MAP) 129/81 Pulse Ox 97 O2 Delivery Room Air O2 Flow Rate 0 FiO2 21 LABS: Laboratory: Test 06/28/24 04:54 06/27/24 20:58 06/27/24 20:55 06/27/24 18:35 Range/Units White Blood Count 14.5 H 4.8-10.8 K/uL Red Blood Count 4.10 4.00-5.50 MIL/uL Hemoglobin 12.1 12.0-16.0 g/dL Hematocrit 36.0 36-48 % Mean Corpuscular Volume 87.8 80-100 fL Mean Corpuscular Hemoglobin 29.5 27.0-33.0 pg Mean Corpuscular Hemoglobin Concent 33.6 32.0-36.0 g/dL Red Cell Distribution Width 12.0 11.0-15.5 % Platelet Count 191 130-400 K/uL Mean Platelet Volume 12.0 H 7.5-10.5 fL Immature Granulocyte % (Auto) 0.5 0-1 % Neutrophils (%) (Auto) 71.5 40.0-77.0 % Lymphocytes (%) (Auto) 11.0 L 21.0-51.0 % Monocytes (%) (Auto) 16.7 H 3.0-13.0 % Eosinophils (%) (Auto) 0.0 0.0-8.0 % Basophils (%) (Auto) 0.3 0.0-5.0 % Neutrophils # (Auto) 10.4 H 1.8-7.7 K/uL Lymphocytes # (Auto) 1.6 1.0-4.8 K/uL Monocytes # (Auto) 2.4 H 0.1-1.0 K/uL Eosinophils # (Auto) 0.00 0.00-0.70 K/uL Basophils # (Auto) 0.04 0.00-0.20 K/uL Absolute Immature Granulocyte (auto 0.07 0-1 K/uL Nucleated Red Blood Cells 0.0 0.0-0.19 % Erythrocyte Sedimentation Rate 53 H 0-20 MM/HR Sodium Level 130 L 136-145 mmol/L Potassium Level 3.3 L 3.5-5.1 mmol/L Chloride Level 96 L 101-111 mmol/L Carbon Dioxide Level 22 21-32 mmol/L Blood Urea Nitrogen 8 7-18 mg/dL Creatinine 0.7 0.5-1.0 mg/dL Glomerular Filtration Rate Calc 128 >90 mL/min Random Glucose 91 70-105 mg/dL Lactic Acid Level 1.0 0.8-2.5 mmol/L Total Calcium 8.8 8.5-10.1 mg/dL Magnesium Level 2.10 1.80-2.40 mg/dL Total Bilirubin 0.4 0.2-1.0 mg/dL Aspartate Amino Transf (AST/SGOT) 22 10-37 U/L Alanine Aminotransferase (ALT/SGPT) 20 12-78 U/L Alkaline Phosphatase 77 50-136 U/L Total Creatine Kinase 119 21-232 U/L Total Protein 6.7 6.0-8.3 g/dL Albumin 2.8 L 3.5-5.0 g/dL Procalcitonin 0.35 0.05-0.5 ng/mL Urine Opiates Screen POSITIVE H NEGATIVE Urine Barbiturates Screen NEGATIVE NEGATIVE Urine Phencyclidine Screen NEGATIVE NEGATIVE Urine Amphetamines Screen NEGATIVE NEGATIVE Urine Benzodiazepines Screen NEGATIVE NEGATIVE Urine Cocaine Screen NEGATIVE NEGATIVE Urine Marijuana (THC) Screen POSITIVE H NEGATIVE Urine Color YELLOW YELLOW Urine Appearance CLOUDY H CLEAR Urine pH 6.0 5.0-8.0 Urine Specific [place] 1.019 1.001-1.031 Urine Protein 70 H NEGATIVE mg/dL Urine Glucose (UA) NEGATIVE NEGATIVE mg/dL Urine Ketones 150 H NEGATIVE mg/dL Urine Occult Blood LARGE H NEGATIVE Urine Nitrate NEGATIVE NEGATIVE Urine Bilirubin NEGATIVE NEGATIVE mg/dL Urine Urobilinogen 0.2 0.2-1.0 mg/dL Urine Leukocyte Esterase 500 H NEGATIVE Jami/uL Urine RBC TNTC H 0-1 /HPF Urine WBC TNTC H 0-1 /HPF Urine Squamous Epithelial Cells RARE 0-2 /HPF Urine Bacteria None None Seen /HPF Urine HCG, Qualitative NEGATIVE NEGATIVE CSF Tube Number 1 CSF Volume 5.0 mL CSF Appearance HAZY CLEAR CSF Color PINK H COLORLESS CSF WBC 0 0-5 CMM CSF RBC 1499 H 0-0 CMM CSF Tube Number (Tube b) 3 CSF Appearance (Tube b) CLEAR CLEAR CSF Color (Tube b) COLORLESS COLORLESS CSF WBC (Tube b) 0.0 0-5 CMM CSF RBC (Tube b) 0.0 0-0 CMM CSF Neutrophils % (tube B) % CSF Lymphocytes % (tube b) % CSF Other Cells % (Tube b) CSF Glucose 67 40-70 mg/dL CSF Total Protein 27 15-45 mg/dL Test 06/27/24 17:55 06/27/24 17:43 Range/Units Influenza Type A Antigen Negative For Type A NEGATIVE Influenza Type B Antigen Negative For Type B NEGATIVE SARS-CoV-2 Antigen (Rapid) PRESUMPTIVE NEGATIVE NEGATIVE Group A Streptococcus Rapid negative NEGATIVE White Cell Morphology Comment See comments DIAGNOSTICS / RADIOLOGY: PATIENT: EVERARDO MCDANIEL ACCT: [id number] LOC: [facility] U: [id number] AGE/SX: 18/F ROOM: [facility] RE06/27/[address]: HERLINDA MISHRA MD : 2005 BED: 1 DIS: STATUS: ADM IN TLOC: SPEC: [id number] RADHA: 06/27/24 STATUS: RES REQ: [id number] RECD: 06/28/[address]: TENISHA VELOZ DO [place] [facility] [place] VALENTINA REYES: NONE SPDESC: CLEAN CAT SELF,REFERRAL ORDERED: AERO ID & SENS Procedure Result Ricardo Date-Time AEROBIC ID & SENSITIVITIES Preliminary 06/28/24-1121 MRL COLONY DESCRIPTION: DAY 1: COLONY COUNT: >100,000 CFU/ML GRAM NEGATIVE RODS IDENTIFICATION AND SENSITIVITY TO FOLLOW Test(s) performed by: [facility] [address] [place] [address] ASSESSMENT: Urinary tract infection. 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 Leukocytosis. Headache. PLAN: Discontinue ceftriaxone. Start Zosyn 3.375 g IV every 8 hours. We will follow up on the final culture results. Continue GI prophylaxis. Continue pain management. We will monitor electrolytes. Thank you for allowing ID to participate in the care of this patient. This case was reviewed and discussed with my supervising physician and the above assessment and plan was formulated and agreed upon. ATTESTATION BY PHYSICIAN I have seen and examined the patient. I reviewed the documentation, medical decision making, and treatment plan as noted by the mid-level provider above. I agree with the findings and plan of care. PACO AGUILA MD, MIRTA L FNP Jun 28, 2024 13:23
[2024-06-28] MEDS: ZOSYN 3.375GM +NS 50ML IV SCH (14:51)
--- NOTE | 2024-06-28 15:38 | NUR ---
DCP -- Home Patient states lives with Grzegorz Franklin, Spouse [phone] in a house with a ramp entrance and tub. States she works at [employer], remains independent and does not drive. States able to complete ADL's on her own. Denies medical devices. Denies home health services, home care provider or dialysis. PCP - Amita Cassidy - [facility]. Upon discharge, states Jennifer Plascencia, Mother [phone]/Grzegorz Franklin, Spouse [phone] and assist with care, as needed. Referred to Financial Counseling. Provided Community Resource List. Addendum: 06/28/24 at 1545 by ZAHRA CLEANING RN CM Amended: Links added.
[2024-06-28 16:18] VITALS: BP 127/81; PULSE 105; RESP 19; TEMP 98.4
--- NOTE | 2024-06-28 17:41 | NUR ---
New IV Right IV is discontinued. A new 22 g PIV is started on the left forearm.
[2024-06-28 20:00] VITALS: BP 138/76; PULSE 116; RESP 18; TEMP 100.1; O2SAT 99
[2024-06-28] MEDS ORDERED: cefTRIAXone 1G VIAL IVPB SCH (22:00)
[2024-06-29] VITALS (8 sets, daily range): BP systolic 124–154; BP diastolic 64–80; PULSE 67–114; RESP 18–19; TEMP 97.9–100.9; O2SAT 98
[2024-06-29] MEDS: acetaMINOPHEN 325 MG TAB PO PRN (00:58)
[2024-06-29 05:05] LABS: BASOPHILS # (AUTO) 0.04 K/uL (0.00-0.20); BASOPHILS % (AUTO) 0.4 % (0.0-5.0); EOSINOPHILS # (AUTO) 0.01 K/uL (0.00-0.70); EOSINOPHILS % (AUTO) 0.1 % (0.0-8.0); HEMATOCRIT 35.7 % (36-48); IMMATURE GRANULOCYTE ABSOLUTE 0.07 K/uL (0-1); LYMPHOCYTES % (AUTO) 21.8 % (21.0-51.0); MEAN CORPUSCULAR HEMOGLOBIN 28.8 pg (27.0-33.0); MEAN CORPUSCULAR HGB CONC 32.8 g/dL (32.0-36.0); MEAN CORPUSCULAR VOLUME 87.9 fL (80-100); MONOCYTES # (AUTO) 1.8 K/uL (0.1-1.0); MONOCYTES % (AUTO) 19.6 % (3.0-13.0); NEUTROPHILS # (AUTO) 5.1 K/uL (1.8-7.7); NEUTROPHILS % (AUTO) 57.3 % (40.0-77.0); PLATELET COUNT (AUTO) 212 K/uL (130-400); RED BLOOD CELL COUNT(AUTO) 4.06 MIL/uL (4.00-5.50)
[2024-06-29 05:22] LABS: ALBUMIN 2.7 g/dL (3.5-5.0); BILIRUBIN,TOTAL 0.5 mg/dL (0.2-1.0); CREATININE 0.6 mg/dL (0.5-1.0); POTASSIUM 3.6 mmol/L (3.5-5.1); TOTAL PROTEIN, SERUM 6.5 g/dL (6.0-8.3)
[2024-06-29] MEDS: DOXYCYCLINE HYCLATE 100 MG TABLET PO SCH (09:44)
--- NOTE | 2024-06-29 09:45 | PN ---
[facility] PROGRESS NOTE Date of Service: Jun 29, 2024 Time of Service: 09:42 SUBJECTIVE: [ ] This is a 18-year-old female with significant medical history of asthma who was brought by EMS to the ED for complaints of fever ( T101 at home ) and neck pain which started yesterday associated with nausea and multi episodes of vomiting. Patient states she developed eyelid pain because of pressure when she was vomiting.Patient also reports having generalized body weakness and unsteady gait today. Patient also reports she had miscarriage 1.5 weeks ago and she went to [facility] [place]As per ER midlevel's report a lumbar puncture procedure was done in the ER. Patient denies recent travel outside the country, patient denies sick contact. Patient has two cats and one dog which are indoor. on admission: Vital signs temperature 98.8, heart rate 92, blood pressure 122/78 saturation 98% on room air. Labs: WBC 16, hemoglobin 12, hematocrit 35, platelet count 186. Sodium 130, potassium 3.0 chloride 95. Urinalysis consistent with urinary tract infection. Influenza type a and B negative SARs COVID negative group a strep negative. CSF appearance hazy, color pink WBC 0 RBC 1499 the rest of the result are normal. Chest x-ray is normal. CT head without contrast result is unremarkable. Pelvic ultrasound result revealed no acute pelvic abnormality noted. While in the ER patient received 1 L NS bolus, morphine 2 mg IV, potassium replacement 50 mEq p.o., Zofran 4 mg IV we will admit patient for further medical management. 06/28/2024 patient was seen patient appears acutely ill. She is fully awake alert oriented. Denies sensitivity to light. Reports no headache Denied chest pain shortness a breath 06/29/2024 we will continue to follow cultures urine cultures Gram-negative E coli waiting for CSF ruled out meningitis final report being followed by ID. T- max overnight 100.9. The patient is tolerating antibiotics. Reports no diarrhea reports no headaches over24 hours. REVIEW OF SYSTEMS CONSTITUTIONAL: Complained of fever Denies chills, or night sweats. No unintentional weight loss reported. NEUROLOGICAL: Complain of generalized body weakness and neck pain Denies headache, amaurosis fugax,sensory deficit, vertigo/spinning sensation, gait abnormalities, or tremors. ENT: No hearing loss, otalgia, otorrhea, rhinitis, rhinorrhea, hoarseness, or sore throat. CARDIOVASCULAR: Denies any exertional angina, dyspnea on exertion, orthopnea, paroxysmal nocturnal dyspnea, palpitations, life-threatening arrhythmias, claudication. PULMONARY: Denies any shortness of breath, cough, phlegm/sputum, hemoptysis, pleuritic chest pain. SLEEP: Denies morning headaches, daytime somnolence or napping. Denies difficulty falling asleep, staying asleep, waking from sleep. Denies knowledge of snoring. GASTROINTESTINAL: Complain of nausea and vomiting multiple times Denies any type of dysphagia to either liquids or solids. Denies pyrosis, early satiety, abdominal pain, diarrhea, constipation, or changes in stool consistency or caliber. Denies coffee-ground emesis, hematemesis, hematochezia, or melanotic stools. GENITOURINARY: Denies frequency, urgency, nocturia, hematuria or incontinence (Storage/Irritative symptoms.) Low urinary stream, straining to void, urinary intermittency or hesitancy, splitting of the voiding stream, terminal dribbling. ENDOCRINOLOGIC: Denies polyuria, polydipsia, polyphagia or heat/cold intolerances. HEMATOLOGIC: Denies thrombophilia/previous clots, or coagulopathy/bleeding disorders. ONCOLOGIC: Denies personal history of malignancy. DERMATOLOGIC: Denies rashes or pruritus. PSYCHIATRIC: Denies any suicidal or homicidal ideation. Denies hallucinations. PHYSICAL EXAM GENERAL APPEARANCE: The patient is awake, alert, and oriented, in no acute cardiopulmonary distress. NEUROLOGICAL: Cranial nerves II-XII grossly intact. Motor is 5/5 in bilateral upper and lower extremities proximal to distal. No sensory deficits. HEENT: Face is symmetric. Pupils are equal and reactive. Extraocular movements are intact. NECK: Supple. No JVD. No thyromegaly. No submental, submandibular, pre- /postauricular, occipital or supraclavicular lymphadenopathy. CHEST: Normal chest expansion. No Telemetry. LUNGS: Absence of any rales, rhonchi or any wheezing. CARDIOVASCULAR: Regular. S1 and S2 normal. No appreciable rubs, murmurs or gallops. ABDOMEN: Soft, nontender, and nondistended. There is no rebound, voluntary guarding, or rigidity. : Deferred. No Jones. EXTREMITIES: Non-edematous and not cyanotic. No clubbing. Good capillary refill. SKIN: No skin breakdown. Vital Signs (last 8hr) Date Time Temp Pulse Resp B/P (MAP) Pulse Ox O2 Delivery O2 Flow Rate FiO2 06/29/24 08:00 99.0 67 19 127/79 97 Room Air 06/29/24 07:43 98 Room Air* 0 21 06/29/24 04:00 98.4 68 18 124/76 97 Room Air LABS: Laboratory: Test 06/29/24 04:36 06/28/24 04:54 06/27/24 20:58 06/27/24 20:55 Range/Units White Blood Count 9.0 # 4.8-10.8 K/uL Red Blood Count 4.06 4.00-5.50 MIL/uL Hemoglobin 11.7 L 12.0-16.0 g/dL Hematocrit 35.7 L 36-48 % Mean Corpuscular Volume 87.9 80-100 fL Mean Corpuscular Hemoglobin 28.8 27.0-33.0 pg Mean Corpuscular Hemoglobin Concent 32.8 32.0-36.0 g/dL Red Cell Distribution Width 12.0 11.0-15.5 % Platelet Count 212 130-400 K/uL Mean Platelet Volume 12.4 H 7.5-10.5 fL Immature Granulocyte % (Auto) 0.8 0-1 % Neutrophils (%) (Auto) 57.3 40.0-77.0 % Lymphocytes (%) (Auto) 21.8 21.0-51.0 % Monocytes (%) (Auto) 19.6 H 3.0-13.0 % Eosinophils (%) (Auto) 0.1 0.0-8.0 % Basophils (%) (Auto) 0.4 0.0-5.0 % Neutrophils # (Auto) 5.1 1.8-7.7 K/uL Lymphocytes # (Auto) 2.0 1.0-4.8 K/uL Monocytes # (Auto) 1.8 H 0.1-1.0 K/uL Eosinophils # (Auto) 0.01 0.00-0.70 K/uL Basophils # (Auto) 0.04 0.00-0.20 K/uL Absolute Immature Granulocyte (auto 0.07 0-1 K/uL Nucleated Red Blood Cells 0.0 0.0-0.19 % Sodium Level 137 136-145 mmol/L Potassium Level 3.6 3.5-5.1 mmol/L Chloride Level 102 101-111 mmol/L Carbon Dioxide Level 25 21-32 mmol/L Blood Urea Nitrogen 7 7-18 mg/dL Creatinine 0.6 0.5-1.0 mg/dL Glomerular Filtration Rate Calc 133 >90 mL/min Random Glucose 95 70-105 mg/dL Total Calcium 8.6 8.5-10.1 mg/dL Magnesium Level 2.00 1.80-2.40 mg/dL Total Bilirubin 0.5 # 0.2-1.0 mg/dL Aspartate Amino Transf (AST/SGOT) 40 H 10-37 U/L Alanine Aminotransferase (ALT/SGPT) 37 # 12-78 U/L Alkaline Phosphatase 77 50-136 U/L Total Protein 6.5 6.0-8.3 g/dL Albumin 2.7 L 3.5-5.0 g/dL Erythrocyte Sedimentation Rate 53 H 0-20 MM/HR Lactic Acid Level 1.0 0.8-2.5 mmol/L Total Creatine Kinase 119 21-232 U/L Procalcitonin 0.35 0.05-0.5 ng/mL Urine Opiates Screen POSITIVE H NEGATIVE Urine Barbiturates Screen NEGATIVE NEGATIVE Urine Phencyclidine Screen NEGATIVE NEGATIVE Urine Amphetamines Screen NEGATIVE NEGATIVE Urine Benzodiazepines Screen NEGATIVE NEGATIVE Urine Cocaine Screen NEGATIVE NEGATIVE Urine Marijuana (THC) Screen POSITIVE H NEGATIVE Urine Color YELLOW YELLOW Urine Appearance CLOUDY H CLEAR Urine pH 6.0 5.0-8.0 Urine Specific [place] 1.019 1.001-1.031 Urine Protein 70 H NEGATIVE mg/dL Urine Glucose (UA) NEGATIVE NEGATIVE mg/dL Urine Ketones 150 H NEGATIVE mg/dL Urine Occult Blood LARGE H NEGATIVE Urine Nitrate NEGATIVE NEGATIVE Urine Bilirubin NEGATIVE NEGATIVE mg/dL Urine Urobilinogen 0.2 0.2-1.0 mg/dL Urine Leukocyte Esterase 500 H NEGATIVE Jami/uL Urine RBC TNTC H 0-1 /HPF Urine WBC TNTC H 0-1 /HPF Urine Squamous Epithelial Cells RARE 0-2 /HPF Urine Bacteria None None Seen /HPF Urine HCG, Qualitative NEGATIVE NEGATIVE Test 06/27/24 18:35 06/27/24 17:55 06/27/24 17:43 Range/Units CSF Tube Number 1 CSF Volume 5.0 mL CSF Appearance HAZY CLEAR CSF Color PINK H COLORLESS CSF WBC 0 0-5 CMM CSF RBC 1499 H 0-0 CMM CSF Tube Number (Tube b) 3 CSF Appearance (Tube b) CLEAR CLEAR CSF Color (Tube b) COLORLESS COLORLESS CSF WBC (Tube b) 0.0 0-5 CMM CSF RBC (Tube b) 0.0 0-0 CMM CSF Neutrophils % (tube B) % CSF Lymphocytes % (tube b) % CSF Other Cells % (Tube b) CSF Glucose 67 40-70 mg/dL CSF Total Protein 27 15-45 mg/dL Influenza Type A Antigen Negative For Type A NEGATIVE Influenza Type B Antigen Negative For Type B NEGATIVE SARS-CoV-2 Antigen (Rapid) PRESUMPTIVE NEGATIVE NEGATIVE Group A Streptococcus Rapid negative NEGATIVE White Cell Morphology Comment See comments Current Medications Medications (Trade) Dose Ordered Sig/Shelly Route PRN Reason Start Time Stop Time Status Last Admin Dose Admin Acetaminophen (TYLenol 325MG TAB) 650 mg Q6H PRN PO Fever 06/29/24 01:00 07/29/24 00:59 06/29/24 00:58 650 MG Ceftriaxone Sodium 1 gm/ Sodium Chloride 50 ml @ 100 mls/hr Q24H IV 06/28/24 01:30 06/28/24 01:47 DC Ceftriaxone Sodium (ROCEphine 1G INJ) 1 gm Q24H IVPB 06/28/24 22:00 06/28/24 14:03 DC Doxycycline Hyclate (Doxycycline Hyclate) 100 mg BID PO 06/29/24 09:00 07/09/24 08:59 Famotidine (Pepcid 20mg Vial) 20 mg BID IV 06/28/24 09:00 07/28/24 08:59 06/28/24 20:23 20 MG Ketorolac Tromethamine (toRADol) 15 mg Q6H PRN IV MODERATE PAIN (4-6) 06/28/24 03:00 07/03/24 02:59 06/28/24 11:59 15 MG Magnesium Sulfate 50 ml @ 0 mls/hr PROTOCOL PRN IV low mag level 06/28/24 10:30 07/28/24 10:29 Ondansetron HCl (zoFRAN 4MG INJ) 4 mg Q6H PRN IV NAUSEA/VOMITING 06/28/24 01:30 07/28/24 01:29 Piperacillin Sod/ Tazobactam Sod (Zosyn 3.375gm+NS 50ml) 3.375 gm Q8H IV 06/28/24 14:30 07/08/24 14:29 06/29/24 06:09 3.375 GM Potassium Chloride 100 ml @ 100 mls/hr AD PRN IV POTASSIUM PROTOCOL 06/28/24 10:30 07/28/24 10:29 Potassium Chloride (K-Dur/Klor-Con 20meq) 20 meq AD PRN PO POTASSIUM PROTOCOL 06/28/24 10:30 07/28/24 10:29 06/28/24 12:00 20 MEQ Potassium Chloride (KCl 10% Elixir 20meq/15ml) 20 meq AD PRN PO POTASSIUM PROTOCOL 06/28/24 10:30 07/28/24 10:29 Sodium Chloride 1,000 ml @ 100 mls/hr Q10H IV 06/28/24 01:30 07/28/24 01:29 06/28/24 03:04 100 MLS/HR DIAGNOSTICS / RADIOLOGY: [ ] ASSESSMENT: Sepsis temperature 101.5, tachycardia 118, leukocytosis POA Failed outpatient treatment POA Suspected meningeal encephalitis ruled out POA Hypokalemia [id number] POA Dehydration POA resolved Substance abuse POA Urinary tract infection Gram-negative E coli POA Moderate protein calorie malnutrition PLAN: Admit: medical-surgical floor condition: Guarded Status: Full code IVF: NS at75 mL/hour Consultants infectious disease Antibiotics: Continues on doxycycline 100 mg b.i.d. p.o.. Zosyn 3.375 g IV every 8 hours. Test: Blood cultures so far negative typhus was sent out We will continue to monitor inflammatory markers Labs cbc, cmp, mag+ in a.m. Replace electrolytes as needed as per protocol to keep potassium above 4.0 magnesium 2.0. Continue Tylenol 650 mg po every 4 hrs for fever Pain management: Toradol IV every 4 hours Tylenol 650 mg po every 4 hrs for fever Supportive measures: DVT ppx, GI ppx all questions answered Supervising MD Dr. Mishra This document was generated in part using voice recognition software, occasional wrong word or sound alike substitutions may have occurred due to the inherent limitations of voice recognition software. Read the chart carefully and recognize using context, where the substitutions have occurred. Although every effort was made to edit the content, follow up manager and typing errors may occur ATTESTATION BY PHYSICIAN I have seen and examined the patient. I reviewed the documentation, medical decision making, and treatment plan as noted by the mid-level provider above. I agree with the findings and plan of care. HERLINDA MISHRA MD, ELIZABETH NP Jun 29, 2024 09:45
--- NOTE | 2024-06-29 12:31 | PN ---
INFECTIOUS DISEASE PROGRESS NOTE Date of Service: Jun 29, 2024 SUBJECTIVE: This is a 18-year-old female patient who was seen and examined at bedside in room 412. Patient is awake, alert and oriented x3. Patient continue with low-grade fevers throughout the night of 100.9. Patient reported having pets at home. No body rash present. Reported that the headache is resolving. We will obtain a typhus panel. Will start patient on doxycycline p.o. The final urine culture results came back positive for E coli and patient was updated with these findings. We will continue on Zosyn IV. No other issues reported by nursing. PHYSICAL EXAM EYES: Anicteric. Pupils equal and reactive. HENT: No oral thrush seen, moist Oral mucosa. Headache resolving. NECK: Supple, no JVD or thyromegaly. LUNGS: Good air entry. No rales, no rhonchi. CARDIOVASCULAR: S1, S2 regular. No murmur heard. ABDOMEN: Soft, non tender, bowel sounds present, no organomegaly. CENTRAL NERVOUS SYSTEM: Awake, alert, oriented x 3. SKIN: No rashes, no swelling. LYMPHATICS: No peripheral lymphadenopathy MUSCULOSKELETAL: No joint swelling, erythema or tenderness. EXTREMITIES: No cyanosis or clubbing. BACK: No deformity, no pressure ulcer. GENITOURINARY: No dysuria or hematuria. Vital Sign (Last 12 Hours) 06/29/24 06/29/24 06/29/24 06/29/24 00:58 04:00 07:43 08:00 Temp 100.9 98.4 99.0 Pulse 68 67 Resp 18 19 B/P (MAP) 124/76 127/79 Pulse Ox 97 98 97 O2 Delivery Room Air Room Air* Room Air O2 Flow Rate 0 FiO2 21 06/29/24 12:14 Temp 97.9 Pulse 98 Resp 19 B/P (MAP) 128/80 Pulse Ox 99 O2 Delivery Room Air Intake & Output (last 24hrs) 06/28/24 06/28/24 06/29/24 14:59 22:59 06:59 Intake Total 500 ml 400.0 ml Balance 500 ml 400.0 ml LABS: Laboratory: Test 06/29/24 04:36 06/28/24 04:54 06/27/24 20:58 06/27/24 20:55 Range/Units White Blood Count 9.0 # 4.8-10.8 K/uL Red Blood Count 4.06 4.00-5.50 MIL/uL Hemoglobin 11.7 L 12.0-16.0 g/dL Hematocrit 35.7 L 36-48 % Mean Corpuscular Volume 87.9 80-100 fL Mean Corpuscular Hemoglobin 28.8 27.0-33.0 pg Mean Corpuscular Hemoglobin Concent 32.8 32.0-36.0 g/dL Red Cell Distribution Width 12.0 11.0-15.5 % Platelet Count 212 130-400 K/uL Mean Platelet Volume 12.4 H 7.5-10.5 fL Immature Granulocyte % (Auto) 0.8 0-1 % Neutrophils (%) (Auto) 57.3 40.0-77.0 % Lymphocytes (%) (Auto) 21.8 21.0-51.0 % Monocytes (%) (Auto) 19.6 H 3.0-13.0 % Eosinophils (%) (Auto) 0.1 0.0-8.0 % Basophils (%) (Auto) 0.4 0.0-5.0 % Neutrophils # (Auto) 5.1 1.8-7.7 K/uL Lymphocytes # (Auto) 2.0 1.0-4.8 K/uL Monocytes # (Auto) 1.8 H 0.1-1.0 K/uL Eosinophils # (Auto) 0.01 0.00-0.70 K/uL Basophils # (Auto) 0.04 0.00-0.20 K/uL Absolute Immature Granulocyte (auto 0.07 0-1 K/uL Nucleated Red Blood Cells 0.0 0.0-0.19 % Sodium Level 137 136-145 mmol/L Potassium Level 3.6 3.5-5.1 mmol/L Chloride Level 102 101-111 mmol/L Carbon Dioxide Level 25 21-32 mmol/L Blood Urea Nitrogen 7 7-18 mg/dL Creatinine 0.6 0.5-1.0 mg/dL Glomerular Filtration Rate Calc 133 >90 mL/min Random Glucose 95 70-105 mg/dL Total Calcium 8.6 8.5-10.1 mg/dL Magnesium Level 2.00 1.80-2.40 mg/dL Total Bilirubin 0.5 # 0.2-1.0 mg/dL Aspartate Amino Transf (AST/SGOT) 40 H 10-37 U/L Alanine Aminotransferase (ALT/SGPT) 37 # 12-78 U/L Alkaline Phosphatase 77 50-136 U/L Total Protein 6.5 6.0-8.3 g/dL Albumin 2.7 L 3.5-5.0 g/dL Erythrocyte Sedimentation Rate 53 H 0-20 MM/HR Lactic Acid Level 1.0 0.8-2.5 mmol/L Total Creatine Kinase 119 21-232 U/L Procalcitonin 0.35 0.05-0.5 ng/mL Urine Opiates Screen POSITIVE H NEGATIVE Urine Barbiturates Screen NEGATIVE NEGATIVE Urine Phencyclidine Screen NEGATIVE NEGATIVE Urine Amphetamines Screen NEGATIVE NEGATIVE Urine Benzodiazepines Screen NEGATIVE NEGATIVE Urine Cocaine Screen NEGATIVE NEGATIVE Urine Marijuana (THC) Screen POSITIVE H NEGATIVE Urine Color YELLOW YELLOW Urine Appearance CLOUDY H CLEAR Urine pH 6.0 5.0-8.0 Urine Specific [place] 1.019 1.001-1.031 Urine Protein 70 H NEGATIVE mg/dL Urine Glucose (UA) NEGATIVE NEGATIVE mg/dL Urine Ketones 150 H NEGATIVE mg/dL Urine Occult Blood LARGE H NEGATIVE Urine Nitrate NEGATIVE NEGATIVE Urine Bilirubin NEGATIVE NEGATIVE mg/dL Urine Urobilinogen 0.2 0.2-1.0 mg/dL Urine Leukocyte Esterase 500 H NEGATIVE Jami/uL Urine RBC TNTC H 0-1 /HPF Urine WBC TNTC H 0-1 /HPF Urine Squamous Epithelial Cells RARE 0-2 /HPF Urine Bacteria None None Seen /HPF Urine HCG, Qualitative NEGATIVE NEGATIVE Test 06/27/24 18:35 06/27/24 17:55 06/27/24 17:43 Range/Units CSF Tube Number 1 CSF Volume 5.0 mL CSF Appearance HAZY CLEAR CSF Color PINK H COLORLESS CSF WBC 0 0-5 CMM CSF RBC 1499 H 0-0 CMM CSF Tube Number (Tube b) 3 CSF Appearance (Tube b) CLEAR CLEAR CSF Color (Tube b) COLORLESS COLORLESS CSF WBC (Tube b) 0.0 0-5 CMM CSF RBC (Tube b) 0.0 0-0 CMM CSF Neutrophils % (tube B) % CSF Lymphocytes % (tube b) % CSF Other Cells % (Tube b) CSF Glucose 67 40-70 mg/dL CSF Total Protein 27 15-45 mg/dL Influenza Type A Antigen Negative For Type A NEGATIVE Influenza Type B Antigen Negative For Type B NEGATIVE SARS-CoV-2 Antigen (Rapid) PRESUMPTIVE NEGATIVE NEGATIVE Group A Streptococcus Rapid negative NEGATIVE White Cell Morphology Comment See comments DIAGNOSTICS / RADIOLOGY: PATIENT: EVERARDO MCDANIEL ACCT: [id number] LOC: [facility] U: [id number] AGE/SX: 18/F ROOM: 412 RE06/27/[address]: HERLINDA MISHRA MD : 2005 BED: 1 DIS: STATUS: ADM IN TLOC: SPEC: [id number] RADHA: 06/27/24 STATUS: COMP REQ: [id number] RECD: 06/28/[address] [facility] [address]: TENISHA VELOZ DO SOURCE: [facility] [place] ENTR: 06/28/24 [facility]: NONE SPDESC: CLEAN CAT SELF,REFERRAL ORDERED: AERO ID & SENS Procedure Result Ricardo Date-Time AEROBIC ID & SENSITIVITIES Final 06/29/24-07 MRL COLONY DESCRIPTION: DAY 1: COLONY COUNT: >100,000 CFU/ML GRAM NEGATIVE RODS IDENTIFICATION AND SENSITIVITY TO FOLLOW ESCHERICHIA COLI E COLI M.I.C. RX --------- ---- AMPICILLIN <=8 S AZTREONAM <=4 S CEFAZOLIN <=2 S CEFTAZIDIME/AVIBACTAM <=8 S CIPROFLOXACIN >2 R GENTAMICIN <=2 S LEVOFLOXACIN >4 R NITROFURANTOIN <=32 S MEROPENEM <=1 S PIPERACILLIN/TAZOBACTAM <=8 S TRIMETHOPRIM/SUFLAMETHOXAZOLE >2/38 R ASSESSMENT: Urinary tract infection with E coli. Possible Typhus. TURPENTINER infection, ruled out, status post lumbar puncture. Leukocytosis, resolving. Headache, resolving. PLAN: Start patient on doxycycline 100 mg p.o. b.i.d.. Continue Zosyn. Obtain typhus IgG antibody. We will follow up on the final culture results. Continue GI prophylaxis. Continue pain management. We will monitor electrolytes. This case was reviewed and discussed with my supervising physician and the above assessment and plan was formulated and agreed upon. ATTESTATION BY PHYSICIAN I have seen and examined the patient. I reviewed the documentation, medical decision making, and treatment plan as noted by the mid-level provider above. I agree with the findings and plan of care. PACO AGUILA MD, MIRTA L FNP Jun 29, 2024 12:31
[2024-06-30] VITALS (8 sets, daily range): BP systolic 122–142; BP diastolic 72–87; PULSE 77–108; RESP 16–18; TEMP 97.8–99.1; O2SAT 96–100
[2024-06-30 04:00] LABS: BASOPHILS # (AUTO) 0.03 K/uL (0.00-0.20); BASOPHILS % (AUTO) 0.5 % (0.0-5.0); EOSINOPHILS # (AUTO) 0.08 K/uL (0.00-0.70); EOSINOPHILS % (AUTO) 1.3 % (0.0-8.0); HEMATOCRIT 35.8 % (36-48); IMMATURE GRANULOCYTE ABSOLUTE 0.07 K/uL (0-1); LYMPHOCYTES # (AUTO) 1.9 K/uL (1.0-4.8); LYMPHOCYTES % (AUTO) 30.5 % (21.0-51.0); MEAN CORPUSCULAR HEMOGLOBIN 29.8 pg (27.0-33.0); MEAN CORPUSCULAR HGB CONC 34.4 g/dL (32.0-36.0); MEAN CORPUSCULAR VOLUME 86.7 fL (80-100); MONOCYTES # (AUTO) 0.6 K/uL (0.1-1.0); MONOCYTES % (AUTO) 9.9 % (3.0-13.0); NEUTROPHILS # (AUTO) 3.6 K/uL (1.8-7.7); NEUTROPHILS % (AUTO) 56.7 % (40.0-77.0); PLATELET COUNT (AUTO) 242 K/uL (130-400); RED BLOOD CELL COUNT(AUTO) 4.13 MIL/uL (4.00-5.50); RED CELL DISTRIBUTION WIDTH 12.1 % (11.0-15.5); WHITE BLOOD COUNT (AUTO) 6.4 K/uL (4.8-10.8)
[2024-06-30 04:13] LABS: ALBUMIN 2.6 g/dL (3.5-5.0); BILIRUBIN,TOTAL 0.2 mg/dL (0.2-1.0); CREATININE 0.8 mg/dL (0.5-1.0); POTASSIUM 3.3 mmol/L (3.5-5.1); TOTAL PROTEIN, SERUM 6.5 g/dL (6.0-8.3)
[2024-07-01 04:00] VITALS: BP 121/65; PULSE 92; RESP 17; TEMP 98.1
[2024-07-01 04:09] LABS: BASOPHILS # (AUTO) 0.03 K/uL (0.00-0.20); BASOPHILS % (AUTO) 0.4 % (0.0-5.0); EOSINOPHILS # (AUTO) 0.08 K/uL (0.00-0.70); HEMATOCRIT 39.6 % (36-48); LYMPHOCYTES # (AUTO) 2.8 K/uL (1.0-4.8); LYMPHOCYTES % (AUTO) 35.3 % (21.0-51.0); MEAN CORPUSCULAR HEMOGLOBIN 29.3 pg (27.0-33.0); MEAN CORPUSCULAR HGB CONC 33.3 g/dL (32.0-36.0); MEAN CORPUSCULAR VOLUME 87.8 fL (80-100); MONOCYTES # (AUTO) 0.8 K/uL (0.1-1.0); MONOCYTES % (AUTO) 9.4 % (3.0-13.0); NEUTROPHILS # (AUTO) 4.2 K/uL (1.8-7.7); NEUTROPHILS % (AUTO) 52.6 % (40.0-77.0); PLATELET COUNT (AUTO) 333 K/uL (130-400); RED BLOOD CELL COUNT(AUTO) 4.51 MIL/uL (4.00-5.50); RED CELL DISTRIBUTION WIDTH 12.1 % (11.0-15.5)
[2024-07-01 04:24] LABS: ALBUMIN 2.8 g/dL (3.5-5.0); BILIRUBIN,TOTAL 0.2 mg/dL (0.2-1.0); CREATININE 0.7 mg/dL (0.5-1.0); POTASSIUM 3.3 mmol/L (3.5-5.1)
[2024-07-01 04:45] LABS: BAND NEUTROPHILS % (MANUAL) 4 % (0-2); BASOPHILS % (MANUAL) 1 % (0-2); EOSINOPHILS % (MANUAL) 1 % (1-6); LYMPHOCYTES % (MANUAL) 48 % (22-44); MAN.DIFF COMMENT-IMPRESSION MANUAL DIFFERENTIAL; MONOCYTES % (MANUAL) 5 % (2-9); SEGMENTED NEUTROPHILS % 41 % (40-70); TOTAL CELLS COUNTED 100
[2024-07-01 07:57] VITALS: BP 113/67; PULSE 80; RESP 18; TEMP 98
[2024-07-01 08:12] VITALS: O2SAT 98
[2024-07-01 12:00] VITALS: BP 120/67; PULSE 74; RESP 18; TEMP 98.1
--- NOTE | 2024-07-01 14:41 | NUR ---
DISCHARGE PERIPHERAL IV REMOVED. DISCHARGED INSTRUCTIONS AND EDUCATION PROVIDED TO PATIENT. PATIENT AWARE TO FOLLOW UP WITH PCP IN 2-3 DAYS. PATIENT AWARE TO TAKE PRESCRIPTION TO PREFERRED PHARMACY. ALL QUESTIONS ANSWERED.
--- NOTE | 2024-07-01 15:36 | DS ---
Discharge Summary Hospital Course Summary: This is a 18-year-old female with significant medical history of asthma who was brought by EMS to the ED for complaints of fever ( T101 at home ) and neck pain which started yesterday associated with nausea and multi episodes of vomiting. Patient states she developed eyelid pain because of pressure when she was vomiting.Patient also reports having generalized body weakness and unsteady gait today. Patient also reports she had miscarriage 1.5 weeks ago and she went to [facility].As per ER midlevel's report a lumbar puncture procedure was done in the ER. Patient denies recent travel outside the country, patient denies sick contact. Patient has two cats and one dog which are indoor. on admission: Vital signs temperature 98.8, heart rate 92, blood pressure 122/78 saturation 98% on room air. Labs: WBC 16, hemoglobin 12, hematocrit 35, platelet count 186. Sodium 130, potassium 3.0 chloride 95. Urinalysis consistent with urinary tract infection. Influenza type a and B negative SARs COVID negative group a strep negative. CSF appearance hazy, color pink WBC 0 RBC 1499 the rest of the result are normal. Chest x-ray is normal. CT head without contrast result is unremarkable. Pelvic ultrasound result revealed no acute pelvic abnormality noted. While in the ER patient received 1 L NS bolus, morphine 2 mg IV, potassium replacement 50 mEq p.o., Zofran 4 mg IV we will admit patient for further medical management. 06/28/2024 patient was seen patient appears acutely ill. She is fully awake alert oriented. Denies sensitivity to light. Reports no headache Denied chest pain shortness a breath 06/29/2024 we will continue to follow cultures urine cultures Gram-negative E coli waiting for CSF ruled out meningitis final report being followed by ID. T- max overnight 100.9. The patient is tolerating antibiotics. Reports no d iarrhea reports no headaches over24 hours. 06/30/2024. Patient appears to be doing much better headaches are somewhat less. Waiting for ID we will final recommendations prior to discharge. 07/01/2024 patient is clinically stable cleared by ID afebrile we will be discharged on oral antibiotics as directed doxycycline 100 mg b.i.d.. Manager Of Financial Reporting(s): RUN DATE: 06/29/24 [facility] RUN TIME: [address] [address] Department of Laboratories CLIA # [id number] Pattern Perforating Machine Operator: Claudia Saucedo DO Specimen Report PATIENT: EVERARDO MCDANIEL ACCT: [id number] LOC: [facility] U: [id number] AGE/SX: ROOM: 412 RE06/27/[address]: HERLINDA MISHRA MD : 2005 BED: 1 DIS: STATUS: ADM IN TLOC: SPEC: [id number] RADHA: 06/27/24 STATUS: COMP REQ: [id number] RECD: 06/28/[address]: TENISHA VELOZ DO SOURCE: [facility] ENTR: 06/28/[address]: GEORGE SPDESC: CLEAN CAT SELF,REFERRAL ORDERED: AERO ID & SENS Procedure Result Ricardo Date-Time AEROBIC ID & SENSITIVITIES Final 06/29/24-0700 MRL COLONY DESCRIPTION: DAY 1: COLONY COUNT: >100,000 CFU/ML GRAM NEGATIVE RODS IDENTIFICATION AND SENSITIVITY TO FOLLOW ESCHERICHIA COLI E COLI M.I.C. RX --------- ---- AMPICILLIN <=8 S AZTREONAM <=4 S CEFAZOLIN <=2 S CEFTAZIDIME/AVIBACTAM <=8 S CIPROFLOXACIN >2 R GENTAMICIN <=2 S LEVOFLOXACIN >4 R NITROFURANTOIN <=32 S MEROPENEM <=1 S PIPERACILLIN/TAZOBACTAM <=8 S TRIMETHOPRIM/SUFLAMETHOXAZOLE >2/38 R RUN DATE: 07/01/24 [facility] RUN TIME: 08 [address] [address], [place] [address] Department of Laboratories [facility] # [id number] Pattern Perforating Machine Operator: Claudia Saucedo DO Specimen Report ------- ----- PATIENT: JONASEVERARDO APONTE ACCT: [id number] LOC: [facility] U: [id number] AGE/SX: 18/F ROOM: 412 RE06/27/[address]: HERLINDA MISHRA MD : 2005 BED: 1 DIS: STATUS: ADM IN TLOC: SPEC: [id number] RADHA: 06/27/24 STATUS: COMP REQ: [id number] RECD: 06/27/[address]: TENISHA VELOZ DO SOURCE: CSF ENTR: 06/27/[address] [facility] [address]: KERRI CHILDERS SPDESC: CEREBRAL S NONE ORDERED: BODY FLUID CULT COMMENTS: CSF Procedure Result Ricardo Date-Time GRAM STAIN Final 06/27/24-2139 NO ORGANISM SEEN NO WHITE BLOOD CELLS SEEN REPORT BODY FLUID CULT Final 07/01/24-08 [facility] COLONY DESCRIPTION: REPORT 1: NO GROWTH AT 36-47 HOURS; STUDIES TO CONTINUE COLONY DESCRIPTION: REPORT 1: NO GROWTH AT 36-47 HOURS; STUDIES TO CONTINUE REPORT 2: NO GROWTH AT 60-71 HOURS; STUDIES TO CONTINUE COLONY DESCRIPTION: REPORT 1: NO GROWTH AT 36-47 HOURS; STUDIES TO CONTINUE REPORT 2: NO GROWTH AT 60-71 HOURS; STUDIES TO CONTINUE REPORT 3: NO GROWTH AT 84 TO 95 HOURS Test(s) performed by: [facility] [address] [place] [address] RUN DATE: 07/01/24 [facility] RUN TIME: [address]07 [address] [address], [place] [address] Department of Laboratories CLIA # [id number] Pattern Perforating Machine Operator: Claudia Saucedo DO Specimen Report PATIENT: EVERARDO MCDANIEL ACCT: [id number] LOC: [facility] U: [id number] AGE/SX: 18/F ROOM: [facility] RE06/27/[address]: HERLINDA MISHRA MD : 2005 BED: 1 DIS: STATUS: ADM IN TLOC: -- SPEC: [id number] RADHA: 06/27/24 STATUS: COMP REQ: [id number] RECD: 06/27/[address]: TENISHA VELOZ DO SOURCE: CSF ENTR: 06/27/24-[address] [facility] [address]: KERRI CHILDERS SPDESC: CEREBRAL S NONE ORDERED: BODY FLUID CULT COMMENTS: CSF Procedure Result Ricardo Date-Time GRAM STAIN Final 06/27/24 NO ORGANISM SEEN NO WHITE BLOOD CELLS SEEN REPORT BODY FLUID CULT Final 07/01/24-807 [facility] COLONY DESCRIPTION: REPORT 1: NO GROWTH AT 36-47 HOURS; STUDIES TO CONTINUE COLONY DESCRIPTION: REPORT 1: NO GROWTH AT 36-47 HOURS; STUDIES TO CONTINUE REPORT 2: NO GROWTH AT 60-71 HOURS; STUDIES TO CONTINUE COLONY DESCRIPTION: REPORT 1: NO GROWTH AT 36-47 HOURS; STUDIES TO CONTINUE REPORT 2: NO GROWTH AT 60-71 HOURS; STUDIES TO CONTINUE REPORT 3: NO GROWTH AT 84 TO 95 HOURS Test(s) performed by: [facility] [address] [place] [address] @ [facility] Test Performed at: [facility] [address] [place], [place] Medical Rn Referral: Petey Taylor D.O. RUN DATE: 06/28/24 [facility] RUN TIME: [address] [address], [place] [address] Department of Laboratories [facility] # [id number] Pattern Perforating Machine Operator: Claudia Saucedo DO Specimen Report PATIENT: EVERARDO MCDANIEL ACCT: [id number] LOC: [facility] U: [id number] AGE/SX: 18/F ROOM: RE06/27/[address]: GEORGE : 2005 BED: DIS: STATUS: REG ER TLOC: SPEC: [id number] RADHA: 06/27/24 STATUS: COMP REQ: [id number] RECD: 06/27/[address] [facility] [address]: TENISHA VELOZ DO SOURCE: CSF ENTR: 06/27/[address] [facility] [address]: KERRI CHILDERS SPDESC: CEREBRAL S NONE ORDERED: MENINGITIS PCR COMMENTS: 5 mls t.v. 5 mls t.v. Procedure Result Ricardo Date-Time MENINGITIS PCR CSF Final 06/28/24 [facility] CRYPTO NEOFORMANS/GATTII: NOT DETECTED NORMAL RANGE=NOT DETECTED CYTOMEGALOVIRUS: NOT DETECTED NORMAL RANGE=NOT DETECTED ESCHERICHIA COLI K1: NOT DETECTED NORMAL RANGE=NOT DETECTED ENTEROVIRUS: NOT DETECTED NORMAL RANGE=NOT DETECTED HERPES SIMPLEX VIRUS 1: NOT DETECTED NORMAL RANGE=NOT DETECTED HERPES SIMPLEX VIRUS 2: NOT DETECTED NORMAL RANGE=NOT DETECTED HUMAN HERPESVIRUS 6: NOT DETECTED NORMAL RANGE=NOT DETECTED HAEMOPHILUS INFLUENZAE: NOT DETECTED NORMAL RANGE=NOT DETECTED LISTERIA MONOCYTOGENES: NOT DETECTED NORMAL RANGE=NOT DETECTED NEISSERIA MENINGITIDIS: NOT DETECTED NORMAL RANGE=NOT DETECTED HUMAN PARECHOVIRUS: NOT DETECTED NORMAL RANGE=NOT DETECTED STREPTOCOCCUS AGALACTIAE: NOT DETECTED NORMAL RANGE=NOT DETECTED STREPTOCOCCUS PNEUMONIAE: NOT DETECTED NORMAL RANGE=NOT DETECTED VARICELLA ZOSTER VIRUS: NOT DETECTED NORMAL RANGE=NOT DETECTED @ [facility] Test Performed at: [facility] [address], [place], [place] Medical Rn Referral: Petey Taylor D.O. END OF REPORT Procedure(s): REASON: headache ORDERING PHYSICIAN: TENISHA VELOZ DO PROCEDURE: HEAD WO - CT HEAD/BRAIN W/O CONTRAST CT HEAD WITHOUT CONTRAST INDICATION: Headache TECHNIQUE: Noncontrast axial helical CT images from the vertex through the skull base using 5 mm slice thickness without contrast material. CT was performed with one or more of the following dose reduction techniques: Automated exposure control, adjustment of the mA and/or kV according to patient size, or use of iterative reconstruction technique. COMPARISON: None FINDINGS: The cerebral and cerebellar hemispheres are age-appropriate in appearance. No evidence for abnormal extra-axial fluid collections or masses. The ventricles and sulci are normal in size and configuration. No evidence for intracranial parenchymal, epidural, or subdural hemorrhage, mass effect or midline shift. The chase-white matter differentiation is well preserved. No secondary evidence to suggest acute ischemia. The brainstem and cerebellum appear normal. The visualized orbits appear unremarkable. The visible paranasal sinuses and mastoid air cells are clear. The calvarium appears normal. IMPRESSION: No acute intracranial process identified. Item Value Date Time Influenza Type A Antigen Negative For Type A 06/27/241754 Influenza Type B Antigen Negative For Type B 06/27/241754 SARS-CoV-2 Antigen (Rapid) PRESUMPTIVE NEGATIVE 06/27/241754 Group A Streptococcus Rapid negative 06/27/241754 CSF Tube Number 1 06/27/241834 CSF Volume 5.0 mL 06/27/241834 CSF Appearance HAZY 06/27/241834 CSF Color PINK H 06/27/241834 CSF WBC 0 CMM 06/27/241834 CSF RBC 1499 CMM H 06/27/241834 CSF Tube Number (Tube b) 3 06/27/241834 CSF Appearance (Tube b) CLEAR 06/27/241834 CSF Color (Tube b) COLORLESS 06/27/241834 CSF WBC (Tube b) 0.0 CMM 06/27/241834 CSF RBC (Tube b) 0.0 CMM 06/27/241834 CSF Neutrophils % (tube B) % 06/27/241834 CSF Glucose 67 mg/dL 06/27/241834 CSF Total Protein 27 mg/dL 06/27/241834 Urine Color YELLOW 06/27/242054 Urine Appearance CLOUDY H 06/27/242054 Urine pH 6.0 06/27/242054 Urine Specific [place] 1.019 06/27/242054 Urine Protein 70 mg/dL H 06/27/242054 Urine Glucose (UA) NEGATIVE mg/dL 06/27/242054 Urine Ketones 150 mg/dL H 06/27/242054 Urine Occult Blood LARGE H 06/27/242054 Urine Nitrate NEGATIVE 06/27/242054 Urine Bilirubin NEGATIVE mg/dL 06/27/242054 Urine Urobilinogen 0.2 mg/dL 06/27/242054 Urine Leukocyte Esterase 500 Jami/uL H 06/27/242054 Urine RBC TNTC /HPF H 06/27/242054 Urine WBC TNTC /HPF H 06/27/242054 Urine Squamous Epithelial Cells RARE /HPF 06/27/242054 Urine Bacteria None /HPF 06/27/242054 Urine HCG, Qualitative NEGATIVE 06/27/242054 Assessment/Plan: Discharged dx's: Sepsis temperature 101.5, tachycardia 118, leukocytosis POA Failed outpatient treatment POA Suspected meningeal encephalitis ruled out POA Hypokalemia [id number] POA Dehydration POA resolved Substance abuse POA Urinary tract infection Gram-negative E coli POA Moderate protein calorie malnutrition PLAN: ADMISSION DATE: 06/27/2024 DISCHARGE DATE: 07/01/2024 DISPOSITION: Home CONDITION: Stable GYM INSTRUCTOR(S): Infectious disease FOLLOW UP APPOINTMENT(S): PCP 2-3 days PROCEDURES:none IMAGING (S) report attached to summary : CT head MICROBIOLOGY: report attached to summary; urine cultures, see is if fluid studies. Blood cultures x3 days negative ACTIVITY: Ad rose marie HOME MEDICATIONS reviewed remain the same CHANGES ON HOME MEDICATIONS none NEW MEDICATIONS doxycycline 100 mg p.o. b.i.d. as directed by ID. TEACHING: Instructed patient to complete antibiotics as directed, side effects and adverse reactions of medication was discussed. Emergency instructions: The patient was instructed to present to the nearest Emergency Department or call 911 should their symptoms return or worsen. Home Medications: Active Scripts Ondansetron (Ondansetron Odt) 4 Mg Tab.rapdis, 4 MG PO Q6HPRN PRN for nausea, #16 TAB 0 Refills Prov:ROSANNE FREEDMAN 11/19/22 Discontinued Scripts [amoxicillin ] No Conflict Check, 500 MG PO BID for 10 Days, #20 0 Refills Prov:ROSANNE FREEDMAN 11/19/22 Continued Medications: Ondansetron (Ondansetron Odt) 4 Mg Tab.rapdis 4 MG PO Q6HPRN PRN for nausea, #16 TAB 0 Refills Discontinued Medications: [amoxicillin ] () 500 MG PO BID for 10 Days, #20 0 Refills Time spent arranging discharge: 31-60 minutes ATTESTATION BY PHYSICIAN I have seen and examined the patient. I reviewed the documentation, medical decision making, and treatment plan as noted by the mid-level provider above. I agree with the findings and plan of care. HERLINDA MISHRA MD, ELIZABETH NP Jul 01, 2024 15:36
--- NOTE | 2024-07-01 15:57 | PN ---
INFECTIOUS DISEASE PROGRESS NOTE Date of Service: Jul 01, 2024 SUBJECTIVE: This is a 18-year-old female patient who was seen and examined at bedside in room 412. Patient is awake, alert and oriented x3. Patient is afebrile, temperature is 98.1 and the WBC is 8.0. No growth reported on the CSF fluid. The urine culture was positive for E coli and was treated with Zosyn IV. From Infectious Disease standpoint patient is cleared to be discharged to home on doxycycline p.o. x 5 days. Prescription was written. PHYSICAL EXAM EYES: Anicteric. Pupils equal and reactive. HENT: No oral thrush seen, moist Oral mucosa. Headache resolving. NECK: Supple, no JVD or thyromegaly. LUNGS: Good air entry. No rales, no rhonchi. CARDIOVASCULAR: S1, S2 regular. No murmur heard. ABDOMEN: Soft, non tender, bowel sounds present, no organomegaly. CENTRAL NERVOUS SYSTEM: Awake, alert, oriented x 3. SKIN: No rashes, no swelling. LYMPHATICS: No peripheral lymphadenopathy MUSCULOSKELETAL: No joint swelling, erythema or tenderness. EXTREMITIES: No cyanosis or clubbing. BACK: No deformity, no pressure ulcer. GENITOURINARY: No dysuria or hematuria. Vital Sign (Last 12 Hours) 07/01/24 07/01/24 07/01/24 07/01/24 04:00 07:57 08:12 12:00 Temp 98.1 98.1 98.1 Pulse 92 80 74 Resp 17 18 18 B/P (MAP) 121/65 113/67 120/67 Pulse Ox 98 98 98 99 O2 Delivery Room Air Room Air Room Air* Room Air O2 Flow Rate 0 FiO2 21 Intake & Output (last 24hrs) 06/30/24 06/30/24 07/01/24 15:00 23:00 07:00 Intake Total 600 ml Balance 600 ml LABS: Laboratory: Test 07/01/24 03:47 Range/Units White Blood Count 8.0 4.8-10.8 K/uL Red Blood Count 4.51 4.00-5.50 MIL/uL Hemoglobin 13.2 12.0-16.0 g/dL Hematocrit 39.6 36-48 % Mean Corpuscular Volume 87.8 80-100 fL Mean Corpuscular Hemoglobin 29.3 27.0-33.0 pg Mean Corpuscular Hemoglobin Concent 33.3 32.0-36.0 g/dL Red Cell Distribution Width 12.1 11.0-15.5 % Platelet Count 333 # 130-400 K/uL Mean Platelet Volume 11.6 H 7.5-10.5 fL Immature Granulocyte % (Auto) 1.3 H 0-1 % Neutrophils (%) (Auto) 52.6 40.0-77.0 % Lymphocytes (%) (Auto) 35.3 21.0-51.0 % Monocytes (%) (Auto) 9.4 3.0-13.0 % Eosinophils (%) (Auto) 1.0 0.0-8.0 % Basophils (%) (Auto) 0.4 0.0-5.0 % Neutrophils # (Auto) 4.2 1.8-7.7 K/uL Lymphocytes # (Auto) 2.8 1.0-4.8 K/uL Monocytes # (Auto) 0.8 0.1-1.0 K/uL Eosinophils # (Auto) 0.08 0.00-0.70 K/uL Basophils # (Auto) 0.03 0.00-0.20 K/uL Absolute Immature Granulocyte (auto 0.10 0-1 K/uL Segmented Neutrophils % 41 40-70 % Band Neutrophils % 4 H 0-2 % Lymphocytes % (Manual) 48 H 22-44 % Monocytes % (Manual) 5 2-9 % Eosinophils % (Manual) 1 1-6 % Basophils % (Manual) 1 0-2 % Nucleated Red Blood Cells 0.0 0.0-0.19 % Differential Comment MANUAL DIFFERENTIAL White Cell Morphology Comment Platelet Morphology Comment See comments Red Blood Cell Morphology ANISO 1+ Sodium Level 143 136-145 mmol/L Potassium Level 3.3 L 3.5-5.1 mmol/L Chloride Level 105 101-111 mmol/L Carbon Dioxide Level 29 21-32 mmol/L Blood Urea Nitrogen 5 L 7-18 mg/dL Creatinine 0.7 0.5-1.0 mg/dL Glomerular Filtration Rate Calc 128 >90 mL/min Random Glucose 105 70-105 mg/dL Total Calcium 9.1 8.5-10.1 mg/dL Magnesium Level 2.00 1.80-2.40 mg/dL Total Bilirubin 0.2 0.2-1.0 mg/dL Aspartate Amino Transf (AST/SGOT) 19 10-37 U/L Alanine Aminotransferase (ALT/SGPT) 39 12-78 U/L Alkaline Phosphatase 86 50-136 U/L Total Protein 7.0 6.0-8.3 g/dL Albumin 2.8 L 3.5-5.0 g/dL ASSESSMENT: Urinary tract infection with E coli. Possible Typhus. DELIMBER OPERATOR infection, ruled out, status post lumbar puncture. Leukocytosis, resolved. Headache, resolved. PLAN: From Infectious Disease standpoint patient is cleared to be discharged to home on doxycycline p.o. x 5 days. Prescription was written. This case was reviewed and discussed with my supervising physician and the above assessment and plan was formulated and agreed upon. ATTESTATION BY PHYSICIAN I have seen and examined the patient. I reviewed the documentation, medical decision making, and treatment plan as noted by the mid-level provider above. I agree with the findings and plan of care. PACO AGUILA MD, MIRTA L [facility] Jul 01, 2024 15:57
== END 2024-07-01 14:50 | disposition home or self-care (01) | DRG 872 ==
LOC: EDH 16:26 → EDHIP 16:27 → 4BH 06-28 02:55
PROVIDERS: ADMIT Internal Medicine; ATTEND Internal Medicine
DX: A41.9 Sepsis, unspecified organism (principal); N39.0 Urinary tract infection, site not specified; E44.0 Moderate protein-calorie malnutrition; B25.9 Cytomegaloviral disease, unspecified; E86.0 Dehydration; E87.6 Hypokalemia; B96.20 Unspecified Escherichia coli [E. coli] as the cause of diseases classified elsewhere; J45.909 Unspecified asthma, uncomplicated; B02.9 Zoster without complications; Z80.49 Family history of malignant neoplasm of other genital organs; Z68.28 Body mass index [BMI] 28.0-28.9, adult; Z79.899 Other long term (current) drug therapy
CPT/HCPCS: 36415; 70450; 71045; 76856; 80048; 80053; 80305; 81001; 81025; 82550; 82945; 83605; 83735; 84145; 84157; 85025; 85651; 86694; 86735; 86757; 86765; 86787; 86788; 87040; 87071; 87076; 87086; 87186; 87205; 87252; 87426; 87483; 87804; 87880; 89051; G0378; J0696; J1885; J2270; J2405; J2543; J3490; J7030

== ENCOUNTER 2024-09-11 05:59 | Emergency (ER) | payer SELFPAY ==
[~2024-09-11] VITALS: Ht 157.5 cm; Wt 67.1 kg
[~2024-09-11 05:59] MED LIST changes: -amoxicillin PO
[2024-09-11 06:21] LABS: BASOPHILS # (AUTO) 0.04 K/uL (0.00-0.20); BASOPHILS % (AUTO) 0.3 % (0.0-5.0); EOSINOPHILS # (AUTO) 0.01 K/uL (0.00-0.70); EOSINOPHILS % (AUTO) 0.1 % (0.0-8.0); IMMATURE GRANULOCYTE ABSOLUTE 0.09 K/uL (0-1); LYMPHOCYTES # (AUTO) 2.1 K/uL (1.0-4.8); LYMPHOCYTES % (AUTO) 16.5 % (21.0-51.0); MEAN CORPUSCULAR HEMOGLOBIN 29.9 pg (27.0-33.0); MEAN CORPUSCULAR HGB CONC 35.5 g/dL (32.0-36.0); MEAN CORPUSCULAR VOLUME 84.3 fL (80-100); MONOCYTES # (AUTO) 1.3 K/uL (0.1-1.0); NEUTROPHILS # (AUTO) 9.2 K/uL (1.8-7.7); NEUTROPHILS % (AUTO) 72.4 % (40.0-77.0); PLATELET COUNT (AUTO) 264 K/uL (130-400); RED BLOOD CELL COUNT(AUTO) 5.22 MIL/uL (4.00-5.50); RED CELL DISTRIBUTION WIDTH 13.2 % (11.0-15.5); WHITE BLOOD COUNT (AUTO) 12.7 K/uL (4.8-10.8)
--- NOTE | 2024-09-11 06:25 | ERN ---
ED Note History of Present Illness Stated Complaint: VOMITING BLOOD ONSET YESTERDAY AM Chief Complaint: Hematemesis/Vomiting Blood Time Seen by MD: 06:02 Dictation: This is a 18-year-old female who came into the emergency room via EMS with complaints of vomitings blood. She stated that she just found out that she got on 08/2024 with home test. She has been vomitings incessantly with severe nausea since yesterday at least 10-12 episodes. She stated that it is foamy in the beginning and towards the end has some bright red blood small amounts. She also reported that she had a spontaneous 3 months ago. No fevers chills or rigors Patient has been smoking marijuana and using opiates but stated that once her test was positive she stopped. Since she has started vomitings she reports that she has a sore throat. Temperature 98.6 pulse 114 respirations 16 blood pressure 123/85 with a pulse oximetry of 96% on room air Allergies: Coded Allergies: No Known Allergies (Unverified Allergy, Unknown, 11/18/22) Home Meds Active Scripts Ondansetron (Ondansetron Odt) 4 Mg Tab.rapdis, 4 MG PO Q6HPRN PRN for nausea, #16 TAB 0 Refills Prov:ROSANNE FREEDMAN PAC 11/19/22 Past Medical History Past Medical History: No Pertinent History Additional Past Medical Hx: MISCARRAIGE X 2 WKS AGO Surgical History: None Family History: Negative Social History: Drugs (Marijuana, history of opiate use) LMP: Jun 11, 2024 : 2 Para: 0 Aborts: 1 RN Note Reviewed/Agreed w/PFSH: Yes Review of System Dictation Constitutional: Negative for fever,chills, and weight loss Eyes: Negative for injury, pain,redness, and discharge ENT: Negative for injury,pain or swelling Cardiovascular: Negative for chest pain, palpitations, and edema Respiratory: Negative for shortness of breath, cough, and wheezing, Abdomen/GI: Negative for abdominal pain, nausea, vomiting, diarrhea, and constipation positive for hematemesis Back: Negative for injury and pain : Negative for injury, bleeding and discharge MS/Extremity: Negative for injury and deformity Skin: Negative for rash, and discoloration Neuro: Negative for headache, weakness, numbness, tingling, and seizure Psych: Negative for suicide ideation, homicidal ideation, and hallucinations Initial Vital Sign VS Vital Signs Date Time Temp Pulse Resp B/P (MAP) Pulse Ox O2 Delivery O2 Flow Rate FiO2 09/11/24 06:00 98.6 114 16 123/85 96 Room Air 0 09/11/24 06:30 21 Physical Exam Dictation General: awake, alert, NAD Head/Face: Normocephalic, atraumatic Eyes: PERRL, EOMI, vision at baseline ENT: oral cavity clear, TMs clear, no signs of infection Neck: Trachea midline, supple, no nuchal rigidity Cardiovascular: RRR, normal S1/S2, No MRGs, no JVD Respiratory: CTAB, no respiratory distress, No rales or wheezes Abdomen: Soft, non-tender, non-distended, normal bowel sounds, no guarding or rebound. Skin: Warm, dry, normal turgor, no rash MS/Extremity: Pulses equal, no cyanosis, neurovascular intact, FROM Neuro: COAx4, GCS 15, strength 5/5, CN 2-12 intact, normal cerebellar exam, normal gait, Psych: Normal behavior, mood, and affect normal Extremities-trace edema without any palpable cords, Homans sign is negative Results (Laboratory/Radiology) Laboratory/Radiology Laboratory Tests Test 09/11/24 06:10 09/11/24 06:44 White Blood Count 12.7 K/uL (4.8-10.8) H Red Blood Count 5.22 MIL/uL (4.00-5.50) Hemoglobin 15.6 g/dL (12.0-16.0) Hematocrit 44.0 % (36-48) Mean Corpuscular Volume 84.3 fL (80-100) Mean Corpuscular Hemoglobin 29.9 pg (27.0-33.0) Mean Corpuscular Hemoglobin Concent 35.5 g/dL (32.0-36.0) Red Cell Distribution Width 13.2 % (11.0-15.5) Platelet Count 264 K/uL (130-400) Mean Platelet Volume 12.4 fL (7.5-10.5) H Immature Granulocyte % (Auto) 0.7 % (0-1) Neutrophils (%) (Auto) 72.4 % (40.0-77.0) Lymphocytes (%) (Auto) 16.5 % (21.0-51.0) L Monocytes (%) (Auto) 10.0 % (3.0-13.0) Eosinophils (%) (Auto) 0.1 % (0.0-8.0) Basophils (%) (Auto) 0.3 % (0.0-5.0) Neutrophils # (Auto) 9.2 K/uL (1.8-7.7) H Lymphocytes # (Auto) 2.1 K/uL (1.0-4.8) Monocytes # (Auto) 1.3 K/uL (0.1-1.0) H Eosinophils # (Auto) 0.01 K/uL (0.00-0.70) Basophils # (Auto) 0.04 K/uL (0.00-0.20) Absolute Immature Granulocyte (auto 0.09 K/uL (0-1) Nucleated Red Blood Cells 0.0 % (0.0-0.19) Sodium Level 138 mmol/L (136-145) Potassium Level 2.7 mmol/L (3.5-5.1) *L Chloride Level 102 mmol/L (101-111) Carbon Dioxide Level 24 mmol/L (21-32) Blood Urea Nitrogen 7 mg/dL (7-18) Creatinine 0.6 mg/dL (0.5-1.0) Glomerular Filtration Rate Calc 133 mL/min (>90) Random Glucose 117 mg/dL (70-105) H Total Calcium 9.5 mg/dL (8.5-10.1) Lipase 20 U/L (16-77) Serum Test, Qualitative POSITIVE (NEGATIVE) H Urine Color YELLOW (YELLOW) Urine Appearance CLEAR (CLEAR) Urine pH 6.0 (5.0-8.0) Urine Specific [place] 1.034 (1.001-1.031) Urine Protein 70 mg/dL (NEGATIVE) H Urine Glucose (UA) 30 mg/dL (NEGATIVE) H Urine Ketones 150 mg/dL (NEGATIVE) H Urine Occult Blood NEGATIVE (NEGATIVE) Urine Nitrate NEGATIVE (NEGATIVE) Urine Bilirubin NEGATIVE mg/dL (NEGATIVE) Urine Urobilinogen 2.0 mg/dL (0.2-1.0) H Urine Leukocyte Esterase NEGATIVE Jami/uL Urine RBC 2-5 /HPF (0-1) H Urine WBC 6-10 /HPF (0-1) H Urine Squamous Epithelial Cells FEW /HPF (0-2) Urine Bacteria RARE /HPF (None Seen) Urine Opiates Screen NEGATIVE (NEGATIVE) Urine Barbiturates Screen NEGATIVE (NEGATIVE) Urine Phencyclidine Screen NEGATIVE (NEGATIVE) Urine Amphetamines Screen NEGATIVE (NEGATIVE) Urine Benzodiazepines Screen NEGATIVE (NEGATIVE) Urine Cocaine Screen NEGATIVE (NEGATIVE) Urine Marijuana (THC) Screen POSITIVE (NEGATIVE) H Labs Reviewed?: Yes ED Course ED Course Orders Procedure Category Date Status Time Cbc With Differential LAB 09/11/24 Complete 06:02 Basic Metabolic Panel LAB 09/11/24 Complete 06:02 Lipase LAB 09/11/24 Complete 06:02 Testing, LAB 09/11/24 Complete Serum Hcg 06:02 Urinalysis Profile LAB 09/11/24 Complete 06:02 Drug Screen Urine LAB 09/11/24 Complete 06:22 Ondansetron 4mg Inj PHA 09/11/24 Complete (Zofran 4mg Inj) 07:00 0.9%Nacl 1000ml PHA 09/11/24 Complete (Ns... W/Potassium 07:00 Pantoprazole 40mg Inj PHA 09/11/24 Complete (Protonix 40mg Inj 07:00 Pharmacy PHA 09/11/24 Complete Communication 07:00 0.9%Nacl 1000ml PHA 09/11/24 In Process (Ns... W/Potassium 07:30 Culture Urine MARYANN 09/11/24 In Process 07:22 Potassium Bicarb/Cit PHA 09/11/24 Verified Ac 25meq (K-Lyte Ta 07:30 Current Medications Medications (Trade) Dose Ordered Sig/Shelly Route PRN Reason Start Time Stop Time Status Last Admin Dose Admin Ondansetron HCl (zoFRAN 4MG INJ) 4 mg ONCE ONCE IVP 09/11/24 07:00 09/11/24 07:01 DC 09/11/24 06:52 Pantoprazole Sodium (PROTonix 40MG INJ) 40 mg ONCE ONCE IVP 09/11/24 07:00 09/11/24 07:01 DC 09/11/24 06:52 Pharmacy Profile Note (Pharmacy Communication) 1 each ONCE MISC 09/11/24 07:00 09/11/24 07:02 DC Potassium Chloride /Sodium Chloride 1,000 ml @ 100 mls/hr Q10H IV 09/11/24 07:00 09/11/24 06:41 DC Potassium Chloride 40 meq/ Sodium Chloride 1,000 ml @ 100 mls/hr Q10H ONCE IV 09/11/24 07:30 09/11/24 17:29 09/11/24 07:26 Vital Signs Date Time Temp Pulse Resp B/P (MAP) Pulse Ox O2 Delivery O2 Flow Rate FiO2 09/11/24 07:18 97.9 87 17 121/83 97 Room Air* 0 21 09/11/24 06:30 98.2 75 17 138/86 97 Room Air* 0 21 09/11/24 06:00 98.6 114 16 123/85 96 Room Air 0 We will perform diagnostic labs, and administer medications according to the patient's complaint. Once the results are available, will review and personally interpreted the labs to rule out any acute life-threatening emergency the trach require immediate intervention and treatment. I will then re-evaluate the patient after treatment and diagnostic exams have return to determine whether the patient requires any further testing, can safely be discharged home or need further admission to hospital for additional treatment and evaluation. Medical Decision Making MDM The differential diagnosis entertained at this time includes hyperemesis of 1st trimester , cyclical vomitings related to marijuana abuse, esophagitis, peptic ulcer disease A full comprehensive workup will be performed to identify the underlying problem. The patient will be monitored closely throughout the emergency department stay. The disposition will depend on the workup results and frequent re-evaluations MDM: Differential diagnosis: , cannabis abuse, peptic ulcer disease, Rationale: Tests considered and ordered secondary to shared decision making include: Previous outside records reviewed: Old ER visits. Risk of complication and/or morbidity or mortality of patient management: None Medications-Per medication reconciliation Need for hospitalization: Patient does not meet criteria for hospitalization. Patient is a 18-year-old female coming in to be evaluated for nauseousness and vomiting. Patient is a states she is . States that she has not been having abdominal pain but has been having some vomiting episodes. Laboratory workup positive for cannabis. Patient was counseled has a cannabis avoidance especially while . Medication will be given for symptomatic relief. Problem List Problem List: (1) Hyperemesis affecting , antepartum (2) (3) Marijuana abuse (4) Nausea DX & DISP Disposition: Discharge Departure Impression: Primary Impression: Hyperemesis affecting , antepartum Additional Impressions: , Marijuana abuse Condition: Stable Scripts Pnv No.122/Iron/Folic Acid ( Multi Tablet) 27 Mg Iron-800 Mcg Tablet 1 TAB PO DAILY for 30 Days, #30 TAB 0 Refills Prov: EDUARD FALL MD 09/11/24 Doxylamine/Pyridoxine HCl (Stephanie Rodriguez 10-10 mg Tablet) 10 Mg-10 Mg Tablet. 2 TAB PO HS for 24 Days, #48 TAB 0 Refills Prov: EDUARD FALL MD 09/11/24 Additional Instructions: FOLLOW-UP WITH PRIMARY CARE PROVIDER IN 1 TO 2 DAYS. TAKE MEDICATIONS DIRECTED HERE IN THE EMERGENCY ROOM. OKAY TO CONTINUE HOME MEDICATIONS UNLESS OTHERWISE DISCUSSED DURING YOUR VISIT IN THE EMERGENCY ROOM TODAY. RETURN TO YOUR NEAREST EMERGENCY ROOM IF SYMPTOMS WORSEN OR IF THERE IS NO IMPROVEMENT. CALL 911 IF YOU NEED IMMEDIATE ASSISTANCE. TAKE TYLENOL [id number] NEEDED AND IF NO CONTRAINDICATIONS ARE PRESENT. INCREASE ORAL HYDRATION. A WOUND CULTURE OR URINE CULTURE WAS ORDERED HERE IN THE EMERGENCY ROOM DEPARTMENT PLEASE FOLLOW-UP WITH PRIMARY CARE PROVIDER AND ADVISE THEM TO GET REPORTS FROM OUR FACILITY. IF YOU HAD ANY REJI WRAP/SPLINTS THAT WERE APPLIED HERE, PLEASE DO NOT REMOVE THEM UNTIL YOU SEE YOUR PRIMARY CARE OR SPECIALTY. Referrals: Referrals: SELF,REFERRAL (PCP) VERÓNICA LAZO MD Time of Disposition: 07:30 ELMER CRUMP MD Sep 11, 2024 06:25 EDUARD FALL MD Sep 11, 2024 07:32
[2024-09-11 06:29] LABS: CREATININE 0.6 mg/dL (0.5-1.0)
[2024-09-11 06:34] LABS: POTASSIUM 2.7 mmol/L (3.5-5.1)
[2024-09-11] MEDS: PANTOPrazole 40 MG/VIAL IVP ONE (06:52)
[2024-09-11] MEDS: ondanSETRON 4MG INJ IVP ONE (06:52)
[2024-09-11 06:58] LABS: APPEARANCE,URINE CLEAR (CLEAR); BILIRUBIN,URINE NEGATIVE (NEGATIVE); COLOR,URINE YELLOW (YELLOW); GLUCOSE, URINE (UA) 30 mg/dL (NEGATIVE); KETONES,URINE 150 mg/dL (NEGATIVE); LEUKOCYTE ESTERASE ,URINE NEGATIVE Leu/uL (NEGATIVE); NITRATE,URINE NEGATIVE (NEGATIVE); OCCULT BLOOD,URINE NEGATIVE (NEGATIVE); PROTEIN,URINE 70 mg/dL (NEGATIVE)
[2024-09-11] MEDS ORDERED: PHARMACY COMMUNICATION MISC SCH (07:00)
[2024-09-11 07:04] LABS: ADD UA MICROSCOPIC YES; AMPHET/METH SCREEN,URINE NEGATIVE (NEGATIVE); BARBITURATE SCREEN, URINE NEGATIVE (NEGATIVE); BENZODIAZEPINES SCREEN,URINE NEGATIVE (NEGATIVE); CANNABINOID SCREEN,URINE POSITIVE (NEGATIVE); COCAINE SCREEN,URINE NEGATIVE (NEGATIVE); OPIATE SCREEN,URINE NEGATIVE (NEGATIVE); PHENCYCLIDINE SCREEN,URINE NEGATIVE (NEGATIVE)
[2024-09-11 07:17] LABS: BACTERIA,URINE RARE /HPF (None Seen); MUCUS,URINE FEW LPF (None Seen); SQUAMOUS EPITHELIAL CELL,UR FEW /HPF (0-2)
[2024-09-11 07:18] VITALS: BP 121/83; PULSE 87; RESP 17; TEMP 97.8; O2SAT 97
[2024-09-11] MEDS ORDERED: PNV1TABL77 PO (07:32)
[2024-09-11] MEDS ORDERED: DOXY1TAB3 PO (07:32)
[2024-09-11] MEDS: PoTASSium BIcarbonate/CIT AC 25 MEQ TABLET.EFF PO ONE ×2 (07:35→07:36)
== END 2024-09-11 07:53 | disposition home or self-care (01) ==
LOC: EDH 05:59
DX: O21.0 Mild hyperemesis gravidarum (principal); O26.891 Other specified pregnancy related conditions, first trimester; F12.10 Cannabis abuse, uncomplicated; Z3A.13 13 weeks gestation of pregnancy
CPT/HCPCS: 99284; 96374; 96375; 80048; 80305; 84703; 83690; 85025; 87086; 81001; 36415; J7030; J2405; J2470; J3480